=== PATIENT | female | born 1930 | race Caucasian/White ===

== ENCOUNTER 2016-10-02 00:32 | Outpatient (CLI) | payer MEDICARE, OTHER | END 2016-10-02 00:33 | disposition critical access hospital (66) | LOC: EMS 00:32 | PROVIDERS: ATTEND Surgery | DX: R00.0 Tachycardia, unspecified (principal) | CPT/HCPCS: A0425; A0429 ==

== ENCOUNTER 2016-10-02 00:52 | Emergency (ER) | payer MEDICARE, OTHER ==
[2016-10-02] MEDS ORDERED: diltiaZEM CD 120 MG CAPSULE PO STA (01:07)
[2016-10-02 01:22] LABS: BILIRUBIN,URINE NEGATIVE (NEGATIVE); PH,URINE 7.5 PH (5.0-7.5); UA CHARGE (STRIP ONLY) YES; UR CULTURE IF IND NOT INDICATED
[2016-10-02] MEDS ORDERED: diltiaZEM CD 180 MG CAPSULE PO ONE (01:23)
[2016-10-02 01:30] LABS: BASOPHILS # (AUTO) 0.1 10^3/uL (0.0-0.1); BASOPHILS % (AUTO) 1.4 %; EOSINOPHILS # (AUTO) 0.1 10^3/uL (0.0-0.7); HCT - HEMATOCRIT 39.1 % (37.0-47.0); HGB - HEMOGLOBIN 13.5 g/dL (12.0-16.0); LYMPHOCYTES # (AUTO) 1.2 10^3/uL (1.5-3.5); LYMPHOCYTES % (AUTO) 20.3 %; MEAN CORPUSCULAR HEMOGLOBIN 30.9 pg (27.0-31.0); MEAN CORPUSCULAR HGB CONC 34.4 g/dL (32.0-36.0); MEAN CORPUSCULAR VOLUME 89.9 fL (81.0-99.0); MEAN PLATELET VOLUME 7.4 fL (7.9-10.8); MONOCYTES # (AUTO) 0.5 10^3/uL (0.0-1.0); MONOCYTES % (AUTO) 9.2 %; NEUTROPHILS # (AUTO) 3.9 10^3/uL (1.5-6.6); NEUTROPHILS % (AUTO) 68.1 %; RED BLOOD COUNT 4.35 10^6/uL (4.20-5.40); UNCORRECTED WHITE BLOOD COUNT 5.8 x10^3/uL; WHITE BLOOD COUNT 5.8 x10^3/uL (4.8-10.8)
[2016-10-02 01:39] LABS: ALBUMIN/GLOBULIN RATIO 1.5 (1.0-2.2); BILIRUBIN,TOTAL 0.6 mg/dL (0.2-1.0); CALCIUM 8.9 mg/dL (8.5-10.3); CREATININE 0.6 mg/dL (0.4-1.0); POTASSIUM 3.1 mmol/L (3.5-5.0); TOTAL PROTEIN 6.3 g/dL (6.7-8.2)
[2016-10-02] MEDS ORDERED: POTASSIUM BICARB 25 MEQ TABLET PO STA (01:45)
[2016-10-02] MEDS ORDERED: POTASSIUM BICARB 25 MEQ TABLET PO ONE (01:49)
[2016-10-02] MEDS ORDERED: SOTALOL 80 MG TABLET PO STA (02:12)
[2016-10-02] MEDS ORDERED: RIVAROXABAN 10 MG TABLET PO STA (02:13)
[2016-10-02] MEDS ORDERED: LISINOPRIL 5 MG TABLET PO STA (02:15)
--- NOTE | 2016-10-02 02:16 | ED Physician Documentation ---
History of Present Illness - Stated complaint Stated Complaint: RAPID HRT RATE - Chief complaint Chief Complaint: Cardiac - History obtained from History obtained from: Patient, EMS - History of Present Illness Timing: Today - Additonal information Additional information: 86 y/o female with a history of SVT has not taken her diltiazem for the past 2 days and today she developed rapid heart rate. She has misplaced her medications and has not been able to find them the past 2 days. She does have a cooler worker who will be at her house tomorrow to help locate the medications. Today she had a rapid heart rate and called the ambulance. They found a rate of 142 and she converted in the ambulance on the way to the hospital. She arrives symptom free and she has not been ill lately. The last time this happened she was in a rapid rate for about 2 days and had an increase in her trop and was hospitalized. Review of Systems Constitutional: denies: Fever, Chills, Myalgias, Fatigue Eyes: denies: Decreased vision Ears: denies: Ear pain Nose: denies: Congestion Throat: denies: Sore throat Cardiac: reports: Palpitations. 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 : None HEENT: None Psych: None Musculoskeletal: None Derm: None - Past Surgical History Past Surgical History: Yes General: Cholecystectomy, Appendectomy, Hiatal hernia repair Ortho: Knee replacement /TURF FARMER: Endometrial ablation, Hysterectomy HEENT: Tonsil/Adenoidectomy - Present Medications Home Medications: Ambulatory Orders Medication Instructions Recorded Confirmed Potassium Chloride [K-Dur] 20 meq PO DAILY 03/03/13 10/02/16 diltiaZEM CD [Cardizem Cd] 180 mg PO DAILY 03/03/13 10/02/16 Rivaroxaban [Xarelto] 20 mg PO DAILY 04/06/13 10/02/16 Sotalol [Betapace] 80 mg ORAL BID 04/06/13 10/02/16 metFORMIN [Glucophage] 250 mg PO QDBREAKFAST 02/23/14 10/02/16 Lisinopril 20 mg PO DAILY 01/19/15 10/02/16 - Allergies Allergies/Adverse Reactions: Allergies Allergy/AdvReac Type Severity Reaction Status Date / Time ibuprofen [From Motrin] AdvReac Intermediate Ringing in Verified 10/02/16 01:06 ears - Social History Does the pt smoke?: No Smoking Status: Never smoker Does the pt drink ETOH?: No Does the pt have substance abuse?: No - Immunizations Immunizations are current?: Yes Immunizations: TDAP current <10years - POLST Patient has POLST: Yes POLST Status: Full Code PD ED PE NORMAL - Vitals Vital signs reviewed: Yes (hypertensive) - General General: No acute distress, Well developed/nourished - HEENT HEENT: Atraumatic, PERRL - Neck Neck: Supple, no meningeal sign - Cardiac Cardiac: RRR, No murmur - Respiratory Respiratory: No respiratory distress, Clear bilaterally - Abdomen Abdomen: Soft, Non tender - Back Back: No CVA TTP, No spinal TTP - Derm Derm: Normal color, Warm and dry, No rash - Extremities Extremities: No deformity, No edema - Neuro 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: 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, No motor deficit, No sensory deficit, Normal speech - Psych Psych: Normal mood, Normal affect Results - Vitals Vitals: Vital Signs - 24 hr 10/02/16 10/02/16 10/02/16 00:54 01:17 03:05 Temperature 36.4 C L Heart Rate 74 76 175 H Respiratory 16 14 Rate Blood Pressure 159/79 H 160/78 H 152/105 H O2 Saturation 97 97 10/02/16 10/02/16 03:10 03:24 Temperature Heart Rate 82 68 Respiratory 13 14 Rate Blood Pressure 136/78 H 132/80 H O2 Saturation 93 94 Oxygen O2 Source Room air - EKG (time done) 0109 Rate: Rate (enter#) (71) Rhythm: Other (atrial premature complexes) Prospect: LAD Compare to prior EKG: Unchanged from prior EKG (04-09-16) Computer interpretation: Agree with computer - Labs Labs: Laboratory Tests 10/02/16 10/02/16 10/02/16 01:13 01:22 01:22 WBC 5.8 RBC 4.35 Hgb 13.5 Hct 39.1 MCV 89.9 MCH 30.9 MCHC 34.4 RDW 14.0 Plt Count 156 MPV 7.4 L Neut # 3.9 Lymph # 1.2 L [place] # 0.5 Eos # 0.1 Baso # 0.1 Absolute Nucleated RBC 0.00 Nucleated RBCs 0.0 Sodium 140 Potassium 3.1 L Chloride 105 Carbon Dioxide 26 Anion Gap 9.0 BUN 26 H Creatinine 0.6 Estimated GFR (MDRD) 95 Glucose 145 H Calcium 8.9 Total Bilirubin 0.6 AST 46 H ALT 39 Alkaline Phosphatase 58 Troponin I Total Protein 6.3 L Albumin 3.8 Globulin 2.5 Albumin/Globulin Ratio 1.5 Lipase 42 Urine Color YELLOW Urine Clarity CLEAR Urine pH 7.5 Ur Specific [place] 1.010 Urine Protein NEGATIVE Urine Glucose (UA) NEGATIVE Urine Ketones NEGATIVE Urine Occult Blood NEGATIVE Urine Nitrite NEGATIVE Urine Bilirubin NEGATIVE Urine Urobilinogen 0.2 (NORMAL) Ur Leukocyte Esterase NEGATIVE Ur Microscopic Review NOT INDICATED Urine Culture Comments NOT INDICATED 10/02/16 01:22 WBC RBC Hgb Hct MCV MCH MCHC RDW Plt Count MPV Neut # Lymph # [place] # Eos # Baso # Absolute Nucleated RBC Nucleated RBCs Sodium Potassium Chloride Carbon Dioxide Anion Gap BUN Creatinine Estimated GFR (MDRD) Glucose Calcium Total Bilirubin AST ALT Alkaline Phosphatase Troponin I < 0.04 Total Protein Albumin Globulin Albumin/Globulin Ratio Lipase Urine Color Urine Clarity Urine pH Ur Specific [place] Urine Protein Urine Glucose (UA) Urine Ketones Urine Occult Blood Urine Nitrite Urine Bilirubin Urine Urobilinogen Ur Leukocyte Esterase Ur Microscopic Review Urine Culture Comments PD MEDICAL DECISION MAKING - ED course Complexity details: reviewed old records, reviewed results, re-evaluated patient , considered differential, d/w patient ED course: 86 y/o female with a rapid heart rate that spontaneously converted has been without her meds for 2 days. She has a negative trop and we have given her the medications she has not had that are essential. She is given lisiopril, xaralto , diltiazem and potassium as well as the sotalol. Here in the ED the patient was helped to the bedside commode and her heart rate increased to 170 and this was promptly converted with a single dose of dilt 10mg IVP. Departure - Departure Disposition: 01 Home, Self Care Clinical Impression: Paroxysmal SVT (supraventricular tachycardia), Hypokalemia Condition: Stable Instructions: ED Tachycardia Pat PSVT Follow-Up: Jj Burton MD [Physician No Access] - Comments: Have your cooler worker help you find your medications. If you are not able to find them get replacements today.
[2016-10-02] MEDS ORDERED: LISINOPRIL 20 MG TABLET ONE (02:23)
[2016-10-02] MEDS ORDERED: diltiaZEM INJ 5 MG/ML VIAL ONE (03:04)
[2016-10-02] MEDS ORDERED: diltiaZEM INJ 5 MG/ML VIAL IVP STA (03:05)
[2016-10-02 04:15] VITALS: BP 138/79
== END 2016-10-02 05:11 | disposition home or self-care (01) ==
LOC: ED 00:52
DX: I47.1 Supraventricular tachycardia (principal); E87.6 Hypokalemia; T46.1X6A Underdosing of calcium-channel blockers, initial encounter; Z91.138 Patient's unintentional underdosing of medication regimen for other reason; I10 Essential (primary) hypertension; I48.91 Unspecified atrial fibrillation; Z79.01 Long term (current) use of anticoagulants; E11.9 Type 2 diabetes mellitus without complications; Z79.84 Long term (current) use of oral hypoglycemic drugs
CPT/HCPCS: 36415; 80053; 81003; 83690; 84484; 85025; 93005; 93010; 96374; 99284; A9270; 81001; 87086

== ENCOUNTER 2017-05-28 14:14 | Outpatient (CLI) | payer MEDICARE, OTHER | END 2017-05-28 14:15 | disposition EMS.NT | LOC: EMS 14:14 | PROVIDERS: ATTEND Surgery | DX: Z03.89 Encounter for observation for other suspected diseases and conditions ruled out (principal); Z74.8 Other problems related to care provider dependency ==

== ENCOUNTER 2017-06-19 13:06 | Outpatient (CLI) | payer MEDICARE, OTHER | END 2017-06-19 13:07 | disposition EMS.NT | LOC: EMS 13:06 | PROVIDERS: ATTEND Surgery | DX: Z03.89 Encounter for observation for other suspected diseases and conditions ruled out (principal) ==

== ENCOUNTER 2017-11-26 03:25 | Outpatient (CLI) | payer MEDICARE, OTHER | END 2017-11-26 03:26 | disposition critical access hospital (66) | LOC: EMS 03:25 | PROVIDERS: ATTEND Surgery | DX: M25.552 Pain in left hip (principal); W18.30XA Fall on same level, unspecified, initial encounter; Y92.091 Bathroom in other non-institutional residence as the place of occurrence of the external cause | CPT/HCPCS: A0425; A0429 ==

== ENCOUNTER 2017-11-26 03:42 | Inpatient (IN) | payer MEDICARE, OTHER ==
[2017-11-26] MEDS ORDERED: MORPHINE 10 MG/ML VIAL IM STA (04:39)
--- NOTE | 2017-11-26 05:50 | ED Physician Documentation ---
PD HPI LOWER EXT INJURY - Stated complaint Stated Complaint: GLF - LEFT HIP PAIN - Chief complaint Chief Complaint: Trauma Ext - History obtained from History obtained from: Patient, EMS - History of Present Illness PD HPI LOW EXT INJURY LOCATION: Left, Hip Type of injury: Fall Where injury occurred: Other (patient is a resident at [facility]) Timing - details: Abrupt onset Pain level max: 10 Pain level now: 10 Improved by: Rest Worsened by: Moving Associated symptoms: No: Weakness, Numbness, Tingling, Swelling Similar symptoms before: Has not had sx before Recently seen: Not recently seen - Additional information Additional information: 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 Patient cannot recall why or how she fell. Review of Systems Constitutional: reports: Reviewed and negative Eyes: reports: Reviewed and negative Ears: reports: Reviewed and negative Nose: reports: Reviewed and negative Throat: reports: Reviewed and negative Cardiac: reports: Reviewed and negative Respiratory: reports: Reviewed and negative GI: reports: Reviewed and negative : denies: Dysuria, Frequency Skin: reports: Reviewed and negative Musculoskeletal: reports: Joint pain (left hip), Pain with weight bearing ( unable to bear any weight) Neurologic: denies: Generalized weakness, Focal weakness, Numbness, Headache, Head injury, LOC PD PAST MEDICAL HISTORY - Past Medical History Past Medical History: Yes Cardiovascular: Hypertension, Atrial fibrillation Respiratory: None Endocrine/Autoimmune: Type 2 diabetes GI: None 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 : None HEENT: None Psych: None Musculoskeletal: None Derm: None - Past Surgical History Past Surgical History: Yes General: Cholecystectomy, Appendectomy, Hiatal hernia repair Ortho: Knee replacement /WOOD BARREL RECONDITIONER: Endometrial ablation, Hysterectomy HEENT: Tonsil/Adenoidectomy - Present Medications Home Medications: Ambulatory Orders Medication Instructions Recorded Confirmed Sotalol [Betapace] 80 mg ORAL BID 04/06/13 10/02/16 metFORMIN [Glucophage] 250 mg PO QDBREAKFAST 02/23/14 10/02/16 Lisinopril 20 mg PO DAILY 01/19/15 10/02/16 Acetaminophen 2 tab PO Q6HR PRN 11/26/17 11/26/17 Fluticasone [Flonase] 2 sprays KENDRA DAILY 11/26/17 11/26/17 Loperamide [Imodium] 2 mg PO DAILY PRN 11/26/17 11/26/17 diltiaZEM CD [Cardizem Cd] 180 mg PO DAILY 11/26/17 11/26/17 - Allergies Allergies/Adverse Reactions: Allergies Allergy/AdvReac Type Severity Reaction Status Date / Time ibuprofen [From Motrin] AdvReac Intermediate Ringing in Verified 11/26/17 03:58 ears - Social History Does the pt smoke?: No Smoking Status: Never smoker Does the pt drink ETOH?: No Does the pt have substance abuse?: No - Immunizations Immunizations are current?: Yes Immunizations: TDAP current <10years - POLST Patient has POLST: No POLST Status: Full Code PD ED PE NORMAL - Vitals Vital signs reviewed: Yes - General General: No acute distress, Well developed/nourished, Other (awake, alert, conversant. 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 2 + bilateral DP/PT pulses) Results - Vitals Vitals: Vital Signs - 24 hr 11/26/17 11/26/17 11/26/17 03:40 05:04 06:01 Temperature 36.2 C L Heart Rate 60 66 53 L Respiratory 18 14 12 Rate Blood Pressure 192/85 H 146/64 H 184/78 H O2 Saturation 98 97 95 11/26/17 07:31 Temperature Heart Rate 63 Respiratory 10 L Rate Blood Pressure 160/73 H O2 Saturation 95 Oxygen O2 Source Room air - Labs Labs: Laboratory Tests 11/26/17 11/26/1711/26/18 06:10 06:10 06:10 WBC 7.4 RBC 4.56 Hgb 14.1 Hct 41.4 MCV 90.7 MCH 30.8 MCHC 33.9 RDW 13.3 Plt Count 184 MPV 7.4 L Neut # (Auto) 6.0 Lymph # (Auto) 0.7 L [place] # (Auto) 0.5 Eos # (Auto) 0.0 Baso # (Auto) 0.0 Absolute Nucleated RBC 0.00 Nucleated RBC % 0.0 PT 14.4 H INR 1.3 H APTT 29.9 Sodium 137 Potassium 3.2 L Chloride 99 L Carbon Dioxide 29 Anion Gap 9.0 BUN 15 Creatinine 0.7 Estimated GFR (MDRD) 79 L Glucose 171 H Calcium 8.7 Urine Color Urine Clarity Urine pH Ur Specific [place] Urine Protein Urine Glucose (UA) Urine Ketones Urine Occult Blood Urine Nitrite Urine Bilirubin Urine Urobilinogen Ur Leukocyte Esterase Ur Microscopic Review Urine Culture Comments 11/26/17 06:10 WBC RBC Hgb Hct MCV MCH MCHC RDW Plt Count MPV Neut # (Auto) Lymph # (Auto) [place] # (Auto) Eos # (Auto) Baso # (Auto) Absolute Nucleated RBC Nucleated RBC % PT INR APTT Sodium Potassium Chloride Carbon Dioxide Anion Gap BUN Creatinine Estimated GFR (MDRD) Glucose Calcium Urine Color LIGHT YELLOW Urine Clarity CLEAR Urine pH 7.5 Ur Specific [place] 1.010 Urine Protein NEGATIVE Urine Glucose (UA) NEGATIVE Urine Ketones NEGATIVE Urine Occult Blood NEGATIVE Urine Nitrite NEGATIVE Urine Bilirubin NEGATIVE Urine Urobilinogen 0.2 (NORMAL) Ur Leukocyte Esterase NEGATIVE Ur Microscopic Review NOT INDICATED Urine Culture Comments NOT INDICATED - Rads (name of study) left hip xrays Radiology: Prelim report reviewed, See rad report CT head Radiology: Prelim report reviewed, See rad report PD MEDICAL DECISION MAKING - ED course Complexity details: reviewed old records, reviewed results, re-evaluated patient , considered differential, d/w patient ED course: D/W Dr. Carrera (on-call orthopedics), will consult and hospitalist to admit. D/W Dr. Luke, accepts admission to hospitalist service - Sepsis Event Vital Signs: Vital Signs - 24 hr 11/26/17 11/26/17 11/26/17 03:40 05:04 06:01 Temperature 36.2 C L Heart Rate 60 66 53 L Respiratory 18 14 12 Rate Blood Pressure 192/85 H 146/64 H 184/78 H O2 Saturation 98 97 95 11/26/17 07:31 Temperature Heart Rate 63 Respiratory 10 L Rate Blood Pressure 160/73 H O2 Saturation 95 Oxygen O2 Source Room air Departure - Departure Disposition: 66 [facility] DC/Xfer Clinical Impression: Hip fracture Qualifiers: Encounter type: initial encounter Fracture type: closed Laterality: left Qualified Code(s): S72.002A - Fracture of unspecified part of neck of left femur , initial encounter for closed fracture Condition: Good Discharge Date/Time: 11/26/17 08:45
--- NOTE | 2017-11-26 05:57 | XRAY Report ---
Procedure Date: 11/26/2017 Accession Number: [id number] / [id number] Procedure: XR - Hip w/Pelvis 2-3V LT CPT Code: FULL RESULT: EXAM: LEFT HIP AND PELVIS RADIOGRAPHY EXAM DATE: 11/26/2017 05:44 AM. HISTORY: GLF, injury to L hip, unable to move L leg. COMPARISONS: None. TECHNIQUE: 1 view of the pelvis and 1 view of the hip. FINDINGS: Bones: Osteopenia. Intertrochanteric left hip fracture. Joints: No dislocation. Mild degenerative changes in the hips. Soft Tissues: Vascular calcifications. IMPRESSION: 1. Osteopenia with intertrochanteric left hip fracture. RADIA
[2017-11-26 06:25] LABS: BASOPHILS % (AUTO) 0.6 %; EOSINOPHILS % (AUTO) 0.6 %; HGB - HEMOGLOBIN 14.1 g/dL (12.0-16.0); LYMPHOCYTES # (AUTO) 0.7 10^3/uL (1.5-3.5); LYMPHOCYTES % (AUTO) 9.8 %; MEAN CORPUSCULAR HEMOGLOBIN 30.8 pg (27.0-31.0); MEAN CORPUSCULAR HGB CONC 33.9 g/dL (32.0-36.0); MEAN CORPUSCULAR VOLUME 90.7 fL (81.0-99.0); MEAN PLATELET VOLUME 7.4 fL (7.9-10.8); MONOCYTES # (AUTO) 0.5 10^3/uL (0.0-1.0); MONOCYTES % (AUTO) 7.3 %; NEUTROPHILS % (AUTO) 81.7 %; PLT - PLATELET COUNT 184 10^3/uL (130-450); RED BLOOD COUNT 4.56 10^6/uL (4.20-5.40); RED CELL DISTRIBUTION WIDTH 13.3 % (12.0-15.0); WHITE BLOOD COUNT 7.4 x10^3/uL (4.8-10.8)
[2017-11-26 06:26] LABS: BILIRUBIN,URINE NEGATIVE (NEGATIVE); GLUCOSE, URINE (UA) NEGATIVE (NEGATIVE); KETONES,URINE (UA) NEGATIVE (NEGATIVE); LEUKOCYTE ESTERASE, URINE NEGATIVE (NEGATIVE); NITRITE,URINE NEGATIVE (NEGATIVE); OCCULT BLOOD,URINE NEGATIVE (NEGATIVE); PH,URINE 7.5 PH (5.0-7.5); PROTEIN,URINE NEGATIVE (NEGATIVE); UROBILINOGEN,URINE 0.2 (NORMAL) E.U./dL (NORMAL)
[2017-11-26 06:28] LABS: CLARITY,URINE CLEAR (CLEAR)
[2017-11-26] MEDS ORDERED: MORPHINE 2 MG/ML SYRINGE IVP STA (06:30)
[2017-11-26 06:31] LABS: INR 1.3 (0.8-1.2); PT - PROTHROMBIN TIME 14.4 secs (9.9-12.6)
[2017-11-26] MEDS ORDERED: SODIUM CHLORIDE 0.9% 1,000 ML IV STA (06:31)
[2017-11-26 06:34] LABS: CALCIUM 8.7 mg/dL (8.5-10.3); CREATININE 0.7 mg/dL (0.4-1.0)
--- NOTE | 2017-11-26 07:42 | XRAY Report ---
Procedure Date: 11/26/2017 Accession Number: [id number] / [id number] Procedure: XR - Chest 1 View X-Ray CPT Code: 47296 FULL RESULT: EXAM: CHEST RADIOGRAPHY EXAM DATE: 11/26/2017 07:02 AM. CLINICAL HISTORY: Hip fracture. Preoperative. COMPARISON: 04/09/2016. TECHNIQUE: 1 view. FINDINGS: Mildly suboptimal evaluation secondary to grid artifact. Lungs/Pleura: No focal consolidation. No large pneumothorax or pleural effusion demonstrated on this single supine view. Probable hyperinflation, as before. Mediastinum: Upper normal size of the cardiac silhouette and mildly tortuous, atherosclerotic thoracic aorta as before. Other: None. IMPRESSION: No radiographically apparent acute abnormality in the chest. No significant change from prior RADIA
--- NOTE | 2017-11-26 07:49 | CT Report ---
Procedure Date: 11/26/2017 Accession Number: [id number] / [id number] Procedure: CT - Head W/O CPT Code: FULL RESULT: EXAM: CT HEAD EXAM DATE: 11/26/2017 07:04 AM. CLINICAL HISTORY: Fall, takes blood thinners (increased risk of intracranial hemorrhage secondary to anticoagulation ). COMPARISON: HEAD W/O 02/23/2014 8:44 AM. TECHNIQUE: Multiaxial CT images were obtained from the foramen magnum to the vertex. Reformats: Sagittal and coronal. IV contrast: None. In accordance with CT protocol optimization, one or more of the following dose reduction techniques were utilized for this exam: automated exposure control, adjustment of mA and/or KV based on patient size, or use of iterative reconstructive technique. FINDINGS: Parenchyma: No acute intraparenchymal hemorrhage. No evidence of mass, midline shift, or CT findings of acute infarction. Small right parieto-occipital focus of encephalomalacia again demonstrated. Agarwal-white differentiation is overall distinct. Diffuse chronic microangiopathic white matter changes are evident. Extraaxial Spaces: Normal for age. No subdural or epidural collections identified. Ventricles: The ventricles and cortical sulci are enlarged, consistent with age-related tissue loss. Sinuses and orbits: Imaged paranasal sinuses, orbits, and mastoids show no significant abnormality. Bones: No evidence of fracture or calvarial defect. Other: None. IMPRESSION: Generalized age-related cortical atrophic changes without evidence of acute intracranial abnormality. No significant change from prior. RADIA
[2017-11-26] MEDS ORDERED: ONDANSETRON 4 MG/2 ML VIAL IVP PRN (08:03)
[2017-11-26] MEDS ORDERED: ZOLPIDEM 5 MG TABLET PO PRN (08:03)
[2017-11-26] MEDS ORDERED: PROCHLORPERAZINE 10 MG/2 ML VIAL IVP PRN (08:03)
[2017-11-26] MEDS ORDERED: PROMETHAZINE 25 MG/1 ML VIAL IM PRN (08:03)
[2017-11-26] MEDS ORDERED: SODIUM CHLORIDE FLUSH 0.9% 10 ML SYRINGE IVP PRN (08:03)
--- NOTE | 2017-11-26 08:12 | HISTORY & PHYSICAL EXAMINATION ---
Chief Complaint - Chief Complaint Chief Complaint: Left leg pain History of Present Illness - Admitted From Admitted From:: Emergency department - History Obtained From Records Reviewed: Yes History obtained from: Patient and medical record Exam Limitations: Patient has dementia and is unable to provide a reliable history - History of Present Illness HPI Comment/Other: Patient is an 87 year old femal resident of [facility] with a past medical history significant for atrial fibrillation on Xarelto, diabetes on Metformin, hypertension and dementia who presented to the emergency department with chief complaint of left hip pain. The patient is a poor historian secondary to her dementia. When asked she does not remember why she came into the hospital. When I asked her what she was doing before she came into the hospital she states that she was riding on a bicycle in a place that she should no have been. She does not know where she is currently living but could tell me her previous address. She is aware that she has pain in her left leg but was no aware why. The patient could not recall what happened before she arrived at the ER. According to records it appears that the patient was ambulating to the [facility] at [facility] at around 3 AM when she fell on her left side. She then complained of pain in her left lower leg and could not get back up. According to the staff at [facility] she did not hit her head or lose consciousness. The patient was unable to get up so staff called 911. Aside from the pain the patient denies any other complaints. Patient denies any headache, blurred vision, runny nose, sore throat, nasal congestion, difficult, swallowing, fevers, chills, chest pain, shortness of air , orthopnea, PND, increased lower extremity swelling, cough, abdominal pain, nausea, vomiting, diarrhea, constipation, urinary symptoms, back pain, neck stiffness, changes in her appetite, recent unintentinal weight loss, neight sweats, hair loss, rash or any focal neurologic deficits. On presentation to the ER the patient was afebrile and very hypertensive. She was in moderate distress secondary to pain. She had obvious deformity of her left leg. She was taken for x ray of her hip right away and this showed that she had a intertrochanteric left hip fracture. Given that the patient was on xarelto she also had a CT head to rule out a bleed. She had no acute finding on CT head. She had routine labs and a CXR which were unimpressive. Orthopedic Surgery was called from the ER and they asked that the hospitalist team admit the patient and consult Orthopedic surgery. History - Past Medical History Cardiovascular: reports: Hypertension, Coronary artery disease (s/p 1 stent in 2014), Atrial fibrillation Respiratory: reports: None Endocrine/Autoimmune: reports: Type 2 diabetes GI: reports: None CREDENTIALING MANAGER: reports: None : reports: None HEENT: reports: None Psych: reports: None Musculoskeletal: reports: None Derm: reports: None MRSA Hx?: No Other Past Medical History: Dementia - Past Surgical History General: reports: Cholecystectomy, Appendectomy, Hiatal hernia repair Ortho: reports: Knee replacement /CREDENTIALING MANAGER: reports: Endometrial ablation, Hysterectomy HEENT: reports: Tonsil/Adenoidectomy - Family & Social History Family History: Mother: , Father: , CAD, Brother: CAD Living arrangement: residential Living Situation: With caregiver(s) Social History Notes: The patient currently lives in a memory care unit at [facility]. The patient moved up to [facility] after her ch[facility], with her . The patient's lives in an assisted living facility and [facility] in [place]. This is the patient's second and they have been for 19 years. The patient does have one daughter who she is currently estranged from. She has 2 grandchildren, 1 of whom lives in [place] and works for the [employer]. The other grandchild lives in [place]. The patient does have memory impairment and dementia therefore her social history may not be completely accurate. She however denies drinking any alcohol, smoking tobacco or using any illicit drugs. - POLST Patient has POLST: No POLST Status: Full Code Meds/Allgy - Home Medications Home Medications: Ambulatory Orders Medication Instructions Recorded Confirmed Sotalol [Betapace] 80 mg ORAL BID 04/06/13 11/26/17 metFORMIN [Glucophage] 250 mg PO QDBREAKFAST 02/23/14 11/26/17 Lisinopril 20 mg PO DAILY 01/19/15 11/26/17 Acetaminophen 2 tab PO Q6HR PRN 11/26/17 11/26/17 Fluticasone [Flonase] 2 sprays KENDRA DAILY 11/26/17 11/26/17 Loperamide [Imodium] 2 mg PO DAILY PRN 11/26/17 11/26/17 Rivaroxaban [Xarelto] 20 mg PO QDBREAKFAST 11/26/17 11/26/17 diltiaZEM CD [Cardizem Cd] 180 mg PO DAILY 11/26/17 11/26/17 - Allergies Allergies/Adverse Reactions: Allergies Allergy/AdvReac Type Severity Reaction Status Date / Time ibuprofen [From Motrin] AdvReac Intermediate Ringing in Verified 11/26/17 03:58 ears Review of Systems - Other Findings Other Findings: A comprehensive review of systems was performed the pertinent positives and negatives are stated above in the HPI and the remainder of the review of systems is negative. Exam - Vital Signs Reviewed Vital Signs: Yes Vital Signs: Vital Signs x48h Temp Pulse Resp BP Pulse Ox 11/26/17 07:31 63 10 L 160/73 H 95 11/26/17 06:01 53 L 12 184/78 H 95 11/26/17 05:04 66 14 146/64 H 97 11/26/17 03:40 36.2 C L 60 18 192/85 H 98 - Physical Exam General Appearance: positive: Alert, Mild distress (Pain in left hip), Other ( Pleasantly demented) Eyes Bilateral: positive: Normal inspection, PERRL, EOMI, No lid inflammation, Conjunctivae nml, No scleral icterus ENT: positive: ENT inspection nml, Pharynx nml, No signs of dehydration. negative: Purulent nasal drainage, Pharyngeal erythema, Oral lesions Neck: positive: Nml inspection, Thyroid nml, No JVD, Trachea midline. negative : Thyromegaly, Lymphadenopathy (R), Lymphadenopathy (L), Stiff neck, Carotid bruit, Tracheal deviation Respiratory: positive: Chest non-tender, No respiratory distress, Breath sounds nml. negative: Wheezes, Rales, Rhonchi Cardiovascular: positive: Regular rate & rhythm, No murmur, No gallop Peripheral Pulses: positive: 2+ Abdomen: positive: Non-tender, No organomegaly, Nml bowel sounds, No distention. negative: Guarding, Rebound, Hepatomegaly Back: positive: Nml inspection. negative: CVA tenderness (R), CVA tenderness (L ) Skin: positive: Color nml, No rash, Warm, Dry. negative: Cyanosis, Diaphoresis , Pallor, Skin rash Extremities: positive: No pedal edema, Other (Left LE externally rotated and shortened with decreased ROM secondary to severe pain) Neurologic/Psychiatric: positive: CN's nml (2-12), Motor nml, Sensation nml, Mood/affect nml, Disoriented to time Conclusion/Plan - Problem List (1) Intertrochanteric fracture of left hip Conclusion/Plan: Patient presented to ER after what is assumed to have been a mechanical fall at [facility]. The patient could not provide any details secondary to her dementia and poor short term memory. She was in pain on presentation and had shortened and externally rotated left leg. The patient x ray of her left hip revealed a intertrochanteric fracture of the left hip. According to the RCRI calculator the patients pre operative risk of major cardiac event is 0.9 %. Patient is on Xarelto for atrial fibrillation which will need to be held. It should be held for 3 does prior to surgery to reduce risk of bleeding. Plan: Hold xarelto Preoperative Echo and EKG Patient can get surgical repair of hip tomorrow afternoon after 3 doses have been held Ortho consult IVFs Pain control with IV morphine PT consult NPO after midnight Qualifiers: Encounter type: initial encounter Fracture type: closed Fracture alignment: nondisplaced Qualified Code(s): S72.145A - Nondisplaced intertrochanteric fracture of left femur, initial encounter for closed fracture (2) Atrial fibrillation Conclusion/Plan: On xarelto for anticoagulation. Rate controlled with sotolol and diltiazem. Plan: Hold xarelto Echo Continue dilt and sotolol Monitor on tele Qualifiers: Atrial fibrillation type: chronic Qualified Code(s): I48.2 - Chronic atrial fibrillation (3) Diabetes Conclusion/Plan: Patient on metformin at home BG elevated on presentation Plan: Hold metformin SS insulin protocol Carb controlled diet HbA1C Qualifiers: Diabetes mellitus type: type 2 Diabetes mellitus shelter insulin use: without middle or intermediate school principal use Diabetes mellitus complication status: with hyperglycemia Qualified Code(s): E11.65 - Type 2 diabetes mellitus with hyperglycemia (4) Hypertension Conclusion/Plan: Uncontrolled on presentation likely secondary to pain Continue home meds Monitor BP Pain control Qualifiers: Hypertension type: essential hypertension Qualified Code(s): I10 - Essential (primary) hypertension (5) History of coronary artery disease Conclusion/Plan: Patient has history of CAD with stent No chest pain or shortness of breath currently Will get echo and EKG Stable - Lab Results Lab results reviewed: Yes Fish Bones: 11/26/17 06:10 11/26/17 06:10 Other Lab Results: Laboratory Results WBC 7.4 x10^3/uL (4.8-10.8) 11/26/17 06:10 RBC 4.56 10^6/uL (4.20-5.40) 11/26/17 06:10 Hgb 14.1 g/dL (12.0-16.0) 11/26/17 06:10 Hct 41.4 % (37.0-47.0) 11/26/17 06:10 MCV 90.7 fL (81.0-99.0) 11/26/17 06:10 MCH 30.8 pg (27.0-31.0) 11/26/17 06:10 MCHC 33.9 g/dL (32.0-36.0) 11/26/17 06:10 RDW 13.3 % (12.0-15.0) 11/26/17 06:10 Plt Count 184 10^3/uL (130-450) 11/26/17 06:10 MPV 7.4 fL (7.9-10.8) L 11/26/17 06:10 Neut # (Auto) 6.0 10^3/uL (1.5-6.6) 11/26/17 06:10 Lymph # (Auto) 0.7 10^3/uL (1.5-3.5) L 11/26/17 06:10 [place] # (Auto) 0.5 10^3/uL (0.0-1.0) 11/26/17 06:10 Eos # (Auto) 0.0 10^3/uL (0.0-0.7) 11/26/17 06:10 Baso # (Auto) 0.0 10^3/uL (0.0-0.1) 11/26/17 06:10 Absolute Nucleated RBC 0.00 x10^3/uL 11/26/17 06:10 Nucleated RBC % 0.0 /100WBC 11/26/17 06:10 PT 14.4 secs (9.9-12.6) H 11/26/17 06:10 INR 1.3 (0.8-1.2) H 11/26/17 06:10 APTT 29.9 secs (24.9-33.3) 11/26/17 06:10 Sodium 137 mmol/L (135-145) 11/26/17 06:10 Potassium 3.2 mmol/L (3.5-5.0) L 11/26/17 06:10 Chloride 99 mmol/L (101-111) L 11/26/17 06:10 Carbon Dioxide 29 mmol/L (21-32) 11/26/17 06:10 Anion Gap 9.0 (6-13) 11/26/17 06:10 BUN 15 mg/dL (6-20) 11/26/17 06:10 Creatinine 0.7 mg/dL (0.4-1.0) 11/26/17 06:10 Estimated GFR (MDRD) 79 (>89) L 11/26/17 06:10 Glucose 171 mg/dL (70-100) H 11/26/17 06:10 Calcium 8.7 mg/dL (8.5-10.3) 11/26/17 06:10 Urine Color LIGHT YELLOW 11/26/17 06:10 Urine Clarity CLEAR (CLEAR) 11/26/17 06:10 Urine pH 7.5 PH (5.0-7.5) 11/26/17 06:10 Ur Specific [place] 1.010 (1.002-1.030) 11/26/17 06:10 Urine Protein NEGATIVE mg/dL (NEGATIVE) 11/26/17 06:10 Urine Glucose (UA) NEGATIVE mg/dL (NEGATIVE) 11/26/17 06:10 Urine Ketones NEGATIVE mg/dL (NEGATIVE) 11/26/17 06:10 Urine Occult Blood NEGATIVE (NEGATIVE) 11/26/17 06:10 Urine Nitrite NEGATIVE (NEGATIVE) 11/26/17 06:10 Urine Bilirubin NEGATIVE (NEGATIVE) 11/26/17 06:10 Urine Urobilinogen 0.2 (NORMAL) E.U./dL (NORMAL) 11/26/17 06:10 Ur Leukocyte Esterase NEGATIVE (NEGATIVE) 11/26/17 06:10 Ur Microscopic Review NOT INDICATED 11/26/17 06:10 Urine Culture Comments NOT INDICATED 11/26/17 06:10 - Diagnostic Imaging Results Diagnostic Imaging Results: positive: Final report reviewed Diagnostic Imaging Results Comments: Hip/pelvis x-ray Impression: 1. Osteopenia with intertrochanteric left hip fracture CT head Impression: Generalized age-related cortical atrophic changes without evidence of acute intracranial abnormality. No significant change from prior. Chest x-ray Impression: No radiographically apparent acute abnormality in the chest. No significant change from prior. - EKG Results EKG Interpreted Independently: Yes Core Measures - Anticipated LOS I expect patient to be DC'd or transferred within 96 hours.: Yes - DVT/VTE - Prophylaxis VTE/DVT Device ordered at admit?: Yes
[2017-11-26] MEDS: MORPHINE 2 MG/ML SYRINGE IVP PRN ×2 (09:14→12:45)
[2017-11-26] MEDS: INSULIN ASPART 300 UNIT/3 ML PEN SUBQ SCH ×3 (12:37→20:31)
[2017-11-26] MEDS: POLYETHYLENE GLYCOL 3350 17 GM PACKET PO SCH (12:45)
[2017-11-26] MEDS: FAMOTIDINE 20 MG TABLET PO SCH (12:45)
[2017-11-26] MEDS: SODIUM CHLORIDE 0.9% 1,000 ML IV SCH ×2 (12:46→22:57)
[2017-11-26] MEDS: SODIUM CHLORIDE FLUSH 0.9% 10 ML SYRINGE IVP SCH ×3 (12:54→23:38)
[2017-11-26] MEDS: oxyCODONE 5 MG TABLET PO PRN ×2 (14:16→16:09)
--- NOTE | 2017-11-26 16:53 | CONSULTATION NOTE ---
Referring Provider Name of Referring Provider:: Hospitalist group Consult Date: 11/26/17 Chief Complaint - Chief Complaint Chief Complaint: left hip fracture History of Present Illness - Admitted From Admitted From:: ER - History of Present Illness HPI Comment/Other: 87 year old female fell at the memory care facility and began to complain of pain in her left hip. she was seen in the ER and found to have an intertrochanteric hip fracture. 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 History - Past Medical History Cardiovascular: reports: Hypertension, Coronary artery disease (s/p 1 stent in 2014), Atrial fibrillation Respiratory: reports: None Neuro: reports: Dementia Endocrine/Autoimmune: reports: Type 2 diabetes GI: reports: None MASTER SONAR TECHNICIAN: reports: None : reports: None HEENT: reports: None Psych: reports: None Musculoskeletal: reports: None Derm: reports: None MRSA Hx?: No Other Past Medical History: Dementia - Past Surgical History General: reports: Cholecystectomy, Appendectomy, Hiatal hernia repair Ortho: reports: Knee replacement /MASTER SONAR TECHNICIAN: reports: Endometrial ablation, Hysterectomy HEENT: reports: Tonsil/Adenoidectomy - Family & Social History Family History: Mother: , Father: , CAD, Brother: CAD Living arrangement: halfway Living Situation: With caregiver(s) Social History Notes: The patient currently lives in a memory care unit at [facility]. The patient moved up to [facility] after her f[facility], with her . The patient's lives in an assisted living facility and [place] in [place]. This is the patient's second and they have been for 19 years. The patient does have one daughter who she is currently estranged from. She has 2 grandchildren, 1 of whom lives in [place] and works for the [employer]. The other grandchild lives in [place]. The patient does have memory impairment and dementia therefore her social history may not be completely accurate. She however denies drinking any alcohol, smoking tobacco or using any illicit drugs. - POLST Patient has POLST: No POLST Status: Full Code Meds/Allgy - Home Medications Home Medications: Ambulatory Orders Medication Instructions Recorded Confirmed Sotalol [Betapace] 80 mg ORAL BID 04/06/13 11/26/17 metFORMIN [Glucophage] 250 mg PO QDBREAKFAST 02/23/14 11/26/17 Lisinopril 20 mg PO DAILY 01/19/15 11/26/17 Acetaminophen 2 tab PO Q6HR PRN 11/26/17 11/26/17 Fluticasone [Flonase] 2 sprays KENDRA DAILY 11/26/17 11/26/17 Loperamide [Imodium] 2 mg PO DAILY PRN 11/26/17 11/26/17 Rivaroxaban [Xarelto] 20 mg PO QDBREAKFAST 11/26/17 11/26/17 diltiaZEM CD [Cardizem Cd] 180 mg PO DAILY 11/26/17 11/26/17 - Allergies Allergies/Adverse Reactions: Allergies Allergy/AdvReac Type Severity Reaction Status Date / Time ibuprofen [From Motrin] AdvReac Intermediate Ringing in Verified 11/26/17 03:58 ears Exam - Vital Signs Vital Signs: Vital Signs x48h Temp Pulse Resp BP Pulse Ox 11/26/17 15:40 36.8 C 63 16 160/85 H 97 - Physical Exam General Appearance: positive: No acute distress, Alert Eyes Bilateral: positive: Normal inspection Extremities: positive: Other (left leg externally rotated and knee flexed. Toes up and down. Sensory exam normal. Foot warm.) Conclusion/Plan - Diagnosis Diagnosis: Intertrochanteric left hip fracture - Plan Plan: She is on Xarelto and is at high risk of a complication from uncontrolled bleeding. We will tentatively schedule her surgery for Friday. - Lab Results Lab results reviewed: Yes Fish Bones: 11/26/17 06:10 11/26/17 06:10 - Diagnostic Imaging Results Diagnostic Imaging Results: positive: See rad report
[2017-11-26] MEDS: SOTALOL 80 MG TABLET PO SCH (20:31)
[2017-11-27] MEDS: oxyCODONE 5 MG TABLET PO PRN ×3 (03:58→16:48)
[2017-11-27 05:56] LABS: INR 1.1 (0.8-1.2); PT - PROTHROMBIN TIME 12.9 secs (9.9-12.6)
[2017-11-27 05:57] LABS: BASOPHILS % (AUTO) 0.4 %; EOSINOPHILS % (AUTO) 0.5 %; HGB - HEMOGLOBIN 13.3 g/dL (12.0-16.0); LYMPHOCYTES % (AUTO) 10.4 %; MEAN CORPUSCULAR HEMOGLOBIN 30.9 pg (27.0-31.0); MEAN CORPUSCULAR HGB CONC 33.9 g/dL (32.0-36.0); MONOCYTES % (AUTO) 11.2 %; NEUTROPHILS # (AUTO) 7.2 10^3/uL (1.5-6.6); NEUTROPHILS % (AUTO) 77.5 %; PLT - PLATELET COUNT 177 10^3/uL (130-450); RED BLOOD COUNT 4.31 10^6/uL (4.20-5.40); RED CELL DISTRIBUTION WIDTH 13.3 % (12.0-15.0); WHITE BLOOD COUNT 9.3 x10^3/uL (4.8-10.8)
[2017-11-27 06:04] LABS: ALBUMIN 3.2 g/dL (3.2-5.5); ALBUMIN/GLOBULIN RATIO 1.2 (1.0-2.2); BILIRUBIN,TOTAL 0.9 mg/dL (0.2-1.0); CALCIUM 8.1 mg/dL (8.5-10.3); CREATININE 0.7 mg/dL (0.4-1.0); MAGNESIUM 1.9 mg/dL (1.7-2.8); PHOSPHORUS 3.4 mg/dL (2.5-4.6); TOTAL PROTEIN 5.8 g/dL (6.7-8.2)
[2017-11-27 06:35] LABS: HB2 TOTAL 13.7 g/dL; HEMOGLOBIN A1C 0.69 g/dL; HEMOGLOBIN A1C % 6.8 % (4.6-6.2)
[2017-11-27] MEDS: INSULIN ASPART 300 UNIT/3 ML PEN SUBQ SCH ×5 (08:14→21:08)
[2017-11-27] MEDS ORDERED: FLUTICASONE NASAL SPRAY NAS SCH (09:00)
[2017-11-27] MEDS: SOTALOL 80 MG TABLET PO SCH ×2 (09:09→20:13)
[2017-11-27] MEDS: diltiaZEM CD 180 MG CAPSULE PO SCH (09:10)
[2017-11-27] MEDS: FAMOTIDINE 20 MG TABLET PO SCH (09:10)
[2017-11-27] MEDS: LISINOPRIL 20 MG TABLET PO SCH (09:10)
[2017-11-27] MEDS: SODIUM CHLORIDE 0.9% 1,000 ML IV SCH ×2 (09:11→23:02)
[2017-11-27] MEDS: POLYETHYLENE GLYCOL 3350 17 GM PACKET PO SCH ×2 (09:13→20:13)
[2017-11-27] MEDS: SODIUM CHLORIDE FLUSH 0.9% 10 ML SYRINGE IVP SCH ×2 (09:14→19:08)
[2017-11-27] MEDS: ACETAMINOPHEN 325 MG TABLET PO PRN (09:19)
[2017-11-27] MEDS: FLUTICASONE NASAL SPRAY NAS SCH (09:51)
--- NOTE | 2017-11-27 13:40 | PROVIDER PROGRESS NOTE ---
Assessment/Plan - Problem List (1) Intertrochanteric fracture of left hip Qualifiers: Encounter type: initial encounter Fracture type: closed Fracture alignment: nondisplaced Qualified Code(s): S72.145A - Nondisplaced intertrochanteric fracture of left femur, initial encounter for closed fracture Assessment/Plan: Patient presented to ER after what is assumed to have been a mechanical fall at [facility]. The patient could not provide any details secondary to her dementia and poor short term memory. She was in pain on presentation and had shortened and externally rotated left leg. The patient x ray of her left hip revealed a intertrochanteric fracture of the left hip. According to the RCRI calculator the patients pre operative risk of major cardiac event is 0.9 %. Patient is on Xarelto for atrial fibrillation which will need to be held. It should be held for 3 does prior to surgery to reduce risk of bleeding. Plan: Hold xarelto Preoperative Echo shows normal EF and no major valvular abnormalities Patient to get surgery to repair hip tomorrow am Ortho consulted IVFs Pain control with IV morphine PT consult post op NPO after midnight Qualifiers: Encounter type: initial encounter Fracture type: closed Fracture alignment: nondisplaced Qualified Code(s): S72.145A - Nondisplaced intertrochanteric fracture of left femur, initial encounter for closed fracture (2) Atrial fibrillation Conclusion/Plan: On xarelto for anticoagulation. Rate controlled with sotolol and diltiazem. Plan: Hold xarelto Echo was normal Continue dilt and sotolol Monitor on tele Qualifiers: Atrial fibrillation type: chronic Qualified Code(s): I48.2 - Chronic atrial fibrillation (3) Diabetes Conclusion/Plan: Patient on metformin at home BG improved today Plan: Hold metformin SS insulin protocol Carb controlled diet HbA1C Qualifiers: Diabetes mellitus type: type 2 Diabetes mellitus superintendent [employer] insulin use: without superintendent [employer] use Diabetes mellitus complication status: with hyperglycemia Qualified Code(s): E11.65 - Type 2 diabetes mellitus with hyperglycemia (4) Hypertension Conclusion/Plan: BP improved Continued home meds Monitor BP Pain control Qualifiers: Hypertension type: essential hypertension Qualified Code(s): I10 - Essential (primary) hypertension (5) History of coronary artery disease Conclusion/Plan: Patient has history of CAD with stent No chest pain or shortness of breath currently Echo is normal Stable - Current Meds Current Meds: Current Medications Generic Name Dose Route Start Last Admin Trade Name Freq PRN Reason Stop Dose Admin Acetaminophen 650 mg 11/26/17 08:03 11/27/17 09:19 Tylenol PO 650 mg Q4HR PRN Administration Pain 1 to 4 Diltiazem HCl 180 mg 11/27/17 09:00 11/27/17 09:10 Cardizem Cd PO 180 mg DAILY DEANNA Administration Famotidine 20 mg 11/26/17 09:00 11/27/17 09:10 Pepcid PO 20 mg DAILY DEANAN Administration Fluticasone Propionate 2 sprays 11/27/17 09:00 11/27/17 09:51 Flonase KENDRA 2 sprays DAILY DEANNA Administration Sodium Chloride 1,000 mls @ 100 mls/hr 11/26/17 09:00 11/27/17 09:11 Normal Saline 0.9% IV 100 mls/hr .Q10H DEANNA Administration Insulin Aspart 1 - 5 unit 11/26/17 12:00 11/27/17 11:49 Novolog SUBQ 1 unit 0800,1200,1700,2100 DEANNA Administration Protocol Lisinopril 20 mg 11/27/17 09:00 11/27/17 09:10 Zestril PO 20 mg DAILY DEANNA Administration Morphine Sulfate 2 mg 11/26/17 08:03 11/26/17 12:45 Morphine IVP 2 mg Q2H PRN Administration Pain 8 to 10 Oxycodone HCl 5 mg 11/26/17 08:03 11/27/17 09:18 Roxicodone PO 5 mg Q4HR PRN Administration Pain 5 to 7 Oxycodone HCl 10 mg 11/26/17 08:03 11/26/17 16:09 Roxicodone PO 10 mg Q4HR PRN Administration Pain 8 to 10 Polyethylene Glycol 17 gm 11/26/17 09:00 11/27/17 09:13 Miralax PO Not Given DAILY DEANNA Sodium Chloride 10 ml 11/26/17 09:00 11/27/17 09:14 Normal Saline Flush 0.9% IVP Not Given 0100,0900,1700 DEANNA Sotalol HCl 80 mg 11/26/17 21:00 11/27/17 09:09 Betapace PO 80 mg BID DEANNA Administration - Lab Result Lab results reviewed: Yes Fish Bone Diagrams: 11/27/17 05:10 11/27/17 05:10 - EKG Results EKG Interpreted Independently: Yes - Diagnostic Imaging Results Diagnostic Imaging Results: Final report reviewed - Additional Planning Condition/Complexity: Guarded My Orders: My Active Orders 11/26/17 21:00 Sotalol [Betapace] 80 mg PO BID 11/27/17 09:00 Fluticasone [Flonase] 2 sprays KENDRA DAILY Lisinopril [Zestril] 20 mg PO DAILY diltiaZEM CD [Cardizem Cd] 180 mg PO DAILY Consult/Specialty: Other (Ortho) Plan Discussed with:: Patient, Significant Other Time Spent: 31-60 minutes Subjective - Subjective Patient Reports: Other (Very confused, demented, denies pain. Eating well.) Nursing Reports: Confused Objective Vital Signs: Vital Signs - 24 hr 11/26/17 11/26/17 11/27/17 15:40 20:09 00:45 Temperature 36.8 C 36.8 C 36.5 C Heart Rate [ 63 62 75 Brachial] Respiratory 16 16 18 Rate Blood Pressure 160/85 H 145/75 H 149/87 H [Left Brachial artery] O2 Saturation 97 94 94 11/27/17 08:00 Temperature 37.0 C Heart Rate [ 71 Brachial] Respiratory 16 Rate Blood Pressure 156/74 H [Left Brachial artery] O2 Saturation 98 Oxygen O2 Source Room air I&O (Last 24 Hrs): Intake and Output Totals x24h 11/25/17 11/26/17 11/27/17 23:59 23:59 23:59 Intake Total 2120 1860 Output Total 2675 600 Balance -555 1260 General: Alert, Cooperative, No acute distress, Other (Demnted, confused, does not know name of hospital or year, she does not remember me and does not know why she is here) HEENT: Atraumatic, PERRLA, EOMI, Mucous membr. moist/pink Neck: Supple, No JVD, No thyromegaly, +2 carotid pulse wo bruit Lymphatic: no adenopathy Neuro: Alert, Focal Deficits, Non Focal, CN 2-12 Grossly Intact, Other (A&Ox1) Cardiovascular: No murmurs, Other (Irregularly, irregular) Respiratory: Chest non-tender, No respiratory distress, Breath sounds nml Abdomen: Normal bowel sounds, Soft, No tenderness, No hepatospenomegaly Extremities: No clubbing, No cyanosis, No edema, Normal pulses, Other (LLE externally rotated and shortened) Skin: No rashes, No breakdown - Results Results: Laboratory Results WBC 9.3 x10^3/uL (4.8-10.8) 11/27/17 05:10 RBC 4.31 10^6/uL (4.20-5.40) 11/27/17 05:10 Hgb 13.3 g/dL (12.0-16.0) 11/27/17 05:10 Hct 39.2 % (37.0-47.0) 11/27/17 05:10 MCV 91.0 fL (81.0-99.0) 11/27/17 05:10 MCH 30.9 pg (27.0-31.0) 11/27/17 05:10 MCHC 33.9 g/dL (32.0-36.0) 11/27/17 05:10 RDW 13.3 % (12.0-15.0) 11/27/17 05:10 Plt Count 177 10^3/uL (130-450) 11/27/17 05:10 MPV 8.0 fL (7.9-10.8) 11/27/17 05:10 Neut # (Auto) 7.2 10^3/uL (1.5-6.6) H 11/27/17 05:10 Lymph # (Auto) 1.0 10^3/uL (1.5-3.5) L 11/27/17 05:10 [place] # (Auto) 1.0 10^3/uL (0.0-1.0) 11/27/17 05:10 Eos # (Auto) 0.0 10^3/uL (0.0-0.7) 11/27/17 05:10 Baso # (Auto) 0.0 10^3/uL (0.0-0.1) 11/27/17 05:10 Absolute Nucleated RBC 0.00 x10^3/uL 11/27/17 05:10 Nucleated RBC % 0.0 /100WBC 11/27/17 05:10 PT 12.9 secs (9.9-12.6) H 11/27/17 05:10 INR 1.1 (0.8-1.2) 11/27/17 05:10 APTT 29.9 secs (24.9-33.3) 11/26/17 06:10 Sodium 135 mmol/L (135-145) 11/27/17 05:10 Potassium 3.6 mmol/L (3.5-5.0) 11/27/17 05:10 Chloride 102 mmol/L (101-111) 11/27/17 05:10 Carbon Dioxide 25 mmol/L (21-32) 11/27/17 05:10 Anion Gap 8.0 (6-13) 11/27/17 05:10 BUN 16 mg/dL (6-20) 11/27/17 05:10 Creatinine 0.7 mg/dL (0.4-1.0) 11/27/17 05:10 Estimated GFR (MDRD) 79 (>89) L 11/27/17 05:10 Glucose 194 mg/dL (70-100) H 11/27/17 05:10 POC Whole Bld Glucose 142 mg/dL (70 - 100) H 11/27/17 11:19 Glycated Hemoglobin 6.8 % (4.6-6.2) H 11/27/17 05:10 Estim Average Glucose 148 (70-100) H 11/27/17 05:10 Calcium 8.1 mg/dL (8.5-10.3) L 11/27/17 05:10 Phosphorus 3.4 mg/dL (2.5-4.6) 11/27/17 05:10 Magnesium 1.9 mg/dL (1.7-2.8) 11/27/17 05:10 Total Bilirubin 0.9 mg/dL (0.2-1.0) 11/27/17 05:10 AST 19 IU/L (10-42) 11/27/17 05:10 ALT 15 IU/L (10-60) 11/27/17 05:10 Alkaline Phosphatase 58 IU/L (42-121) 11/27/17 05:10 Total Protein 5.8 g/dL (6.7-8.2) L 11/27/17 05:10 Albumin 3.2 g/dL (3.2-5.5) 11/27/17 05:10 Globulin 2.6 g/dL (2.1-4.2) 11/27/17 05:10 Albumin/Globulin Ratio 1.2 (1.0-2.2) 11/27/17 05:10 Urine Color LIGHT YELLOW 11/26/17 06:10 Urine Clarity CLEAR (CLEAR) 11/26/17 06:10 Urine pH 7.5 PH (5.0-7.5) 11/26/17 06:10 Ur Specific [place] 1.010 (1.002-1.030) 11/26/17 06:10 Urine Protein NEGATIVE mg/dL (NEGATIVE) 11/26/17 06:10 Urine Glucose (UA) NEGATIVE mg/dL (NEGATIVE) 11/26/17 06:10 Urine Ketones NEGATIVE mg/dL (NEGATIVE) 11/26/17 06:10 Urine Occult Blood NEGATIVE (NEGATIVE) 11/26/17 06:10 Urine Nitrite NEGATIVE (NEGATIVE) 11/26/17 06:10 Urine Bilirubin NEGATIVE (NEGATIVE) 11/26/17 06:10 Urine Urobilinogen 0.2 (NORMAL) E.U./dL (NORMAL) 11/26/17 06:10 Ur Leukocyte Esterase NEGATIVE (NEGATIVE) 11/26/17 06:10 Ur Microscopic Review NOT INDICATED 11/26/17 06:10 Urine Culture Comments NOT INDICATED 11/26/17 06:10 ABX Reporting Has patient been on IV antibiotics over the past 48 hours?: No Current Medications - Current Medications Current Medications: Active Medications Generic Name Dose Route Start Last Admin Trade Name Freq PRN Reason Stop Dose Admin Acetaminophen 650 mg 11/26/17 08:03 11/27/17 09:19 Tylenol PO 650 mg Q4HR PRN Administration Pain 1 to 4 Diltiazem HCl 180 mg 11/27/17 09:00 11/27/17 09:10 Cardizem Cd PO 180 mg DAILY DEANNA Administration Famotidine 20 mg 11/26/17 09:00 11/27/17 09:10 Pepcid PO 20 mg DAILY DEANNA Administration Fluticasone Propionate 2 sprays 11/27/17 09:00 11/27/17 09:51 Flonase KENDRA 2 sprays DAILY DEANNA Administration Sodium Chloride 1,000 mls @ 100 mls/hr 11/26/17 09:00 11/27/17 09:11 Normal Saline 0.9% IV 100 mls/hr .Q10H DEANNA Administration Insulin Aspart 1 - 5 unit 11/26/17 12:00 11/27/17 11:49 Novolog SUBQ 1 unit 0800,1200,1700,2100 DEANNA Administration Protocol Lisinopril 20 mg 11/27/17 09:00 11/27/17 09:10 Zestril PO 20 mg DAILY DEANNA Administration Morphine Sulfate 2 mg 11/26/17 08:03 11/26/17 12:45 Morphine IVP 2 mg Q2H PRN Administration Pain 8 to 10 Ondansetron HCl 4 mg 11/26/17 08:03 Zofran Inj IVP Q6HR PRN Nausea / Vomiting Oxycodone HCl 5 mg 11/26/17 08:03 11/27/17 09:18 Roxicodone PO 5 mg Q4HR PRN Administration Pain 5 to 7 Oxycodone HCl 10 mg 11/26/17 08:03 11/26/17 16:09 Roxicodone PO 10 mg Q4HR PRN Administration Pain 8 to 10 Polyethylene Glycol 17 gm 11/26/17 09:00 11/27/17 09:13 Miralax PO Not Given DAILY [facility] [place] Prochlorperazine Edisylate 10 mg 11/26/17 08:03 Compazine Inj IVP Q6HR PRN Nausea / Vomiting Promethazine HCl 25 mg 11/26/17 08:03 Phenergan Inj IM Q6HR PRN Nausea / Vomiting Sodium Chloride 10 ml 11/26/17 08:03 Normal Saline Flush 0.9% IVP PRN PRN NEEDED PER PROVIDER ORDERS Sodium Chloride 10 ml 11/26/17 09:00 11/27/17 09:14 Normal Saline Flush 0.9% IVP Not Given 0100,0900,1700 [facility] Sotalol HCl 80 mg 11/26/17 21:00 11/27/17 09:09 Betapace PO 80 mg BID DEANNA Administration Zolpidem Tartrate 5 mg 11/26/17 08:03 Ambien PO QPM PRN Insomnia Sotalol [Betapace] 80 mg ORAL BID 04/06/13 metFORMIN [Glucophage] 250 mg PO QDBREAKFAST 02/23/14 Lisinopril 20 mg PO DAILY 01/19/15 Acetaminophen 2 tab PO Q6HR PRN 11/26/17 Fluticasone [Flonase] 2 sprays KENDRA DAILY 11/26/17 Loperamide [Imodium] 2 mg PO DAILY PRN 11/26/17 Rivaroxaban [Xarelto] 20 mg PO QDBREAKFAST 11/26/17 diltiaZEM CD [Cardizem Cd] 180 mg PO DAILY 11/26/17
[2017-11-27] MEDS: MORPHINE 2 MG/ML SYRINGE IVP PRN ×2 (14:01→20:13)
--- NOTE | 2017-11-27 14:37 | PROVIDER PROGRESS NOTE ---
Subjective - Prog Note Date Prog Note Date: 11/27/17 Prog Note Time: 14:35 - Subjective Pt reports feeling: No change Objective - Vital Signs/Intake & Output Vital Signs: Vital Signs x48h Temp Pulse Resp BP Pulse Ox 11/27/17 08:00 37.0 C 71 16 156/74 H 98 Intake & Output: Intake & Output 11/24/17 11/25/17 11/26/17 11/27/17 23:59 23:59 23:59 23:59 Intake Total 2120 1960 Output Total 2675 600 Balance -555 1360 - Objective Extremities: positive: Other (Continues to refuse repositioning. Leg in abduction and ER. Toes up and down. Foot warm.) - Lab Results Fish Bones: 11/27/17 05:10 11/27/17 05:10 Other Labs: Lab Results x24hrs 11/27/17 11/27/17 11/27/17 Range/Units 11:19 07:38 05:10 WBC (4.8-10.8) x10^3/uL RBC (4.20-5.40) 10^6/uL Hgb (12.0-16.0) g/dL Hct (37.0-47.0) % MCV (81.0-99.0) fL MCH (27.0-31.0) pg MCHC (32.0-36.0) g/dL RDW (12.0-15.0) % Plt Count (130-450) 10^3/uL MPV (7.9-10.8) fL Neut # (Auto) (1.5-6.6) 10^3/uL Lymph # (Auto) (1.5-3.5) 10^3/uL [place] # (Auto) (0.0-1.0) 10^3/uL Eos # (Auto) (0.0-0.7) 10^3/uL Baso # (Auto) (0.0-0.1) 10^3/uL Absolute Nucleated RBC x10^3/uL Nucleated RBC % /100WBC PT (9.9-12.6) secs INR (0.8-1.2) Sodium (135-145) mmol/L Potassium (3.5-5.0) mmol/L Chloride (101-111) mmol/L Carbon Dioxide (21-32) mmol/L Anion Gap (6-13) BUN (6-20) mg/dL Creatinine (0.4-1.0) mg/dL Estimated GFR (MDRD) (>89) Glucose (70-100) mg/dL POC Whole Bld Glucose 142 H 170 H (70 - 100) mg/dL Glycated Hemoglobin 6.8 H (4.6-6.2) % Estim Average Glucose 148 H (70-100) Calcium (8.5-10.3) mg/dL Phosphorus (2.5-4.6) mg/dL Magnesium (1.7-2.8) mg/dL Total Bilirubin (0.2-1.0) mg/dL AST (10-42) IU/L ALT (10-60) IU/L Alkaline Phosphatase (42-121) IU/L Total Protein (6.7-8.2) g/dL Albumin (3.2-5.5) g/dL Globulin (2.1-4.2) g/dL Albumin/Globulin Ratio (1.0-2.2) 11/27/17 11/27/17 11/27/17 Range/Units 05:10 05:10 05:10 WBC 9.3 (4.8-10.8) x10^3/uL RBC 4.31 (4.20-5.40) 10^6/uL Hgb 13.3 (12.0-16.0) g/dL Hct 39.2 (37.0-47.0) % MCV 91.0 (81.0-99.0) fL MCH 30.9 (27.0-31.0) pg MCHC 33.9 (32.0-36.0) g/dL RDW 13.3 (12.0-15.0) % Plt Count 177 (130-450) 10^3/uL MPV 8.0 (7.9-10.8) fL Neut # (Auto) 7.2 H (1.5-6.6) 10^3/uL Lymph # (Auto) 1.0 L (1.5-3.5) 10^3/uL [place] # (Auto) 1.0 (0.0-1.0) 10^3/uL Eos # (Auto) 0.0 (0.0-0.7) 10^3/uL Baso # (Auto) 0.0 (0.0-0.1) 10^3/uL Absolute Nucleated RBC 0.00 x10^3/uL Nucleated RBC % 0.0 /100WBC PT 12.9 H (9.9-12.6) secs INR 1.1 (0.8-1.2) Sodium 135 (135-145) mmol/L Potassium 3.6 (3.5-5.0) mmol/L Chloride 102 (101-111) mmol/L Carbon Dioxide 25 (21-32) mmol/L Anion Gap 8.0 (6-13) BUN 16 (6-20) mg/dL Creatinine 0.7 (0.4-1.0) mg/dL Estimated GFR (MDRD) 79 L (>89) Glucose 194 H (70-100) mg/dL POC Whole Bld Glucose (70 - 100) mg/dL Glycated Hemoglobin (4.6-6.2) % Estim Average Glucose (70-100) Calcium 8.1 L (8.5-10.3) mg/dL Phosphorus 3.4 (2.5-4.6) mg/dL Magnesium 1.9 (1.7-2.8) mg/dL Total Bilirubin 0.9 (0.2-1.0) mg/dL AST 19 (10-42) IU/L ALT 15 (10-60) IU/L Alkaline Phosphatase 58 (42-121) IU/L Total Protein 5.8 L (6.7-8.2) g/dL Albumin 3.2 (3.2-5.5) g/dL Globulin 2.6 (2.1-4.2) g/dL Albumin/Globulin Ratio 1.2 (1.0-2.2) 11/26/17 11/26/17 11/26/17 Range/Units 20:27 16:35 11:19 WBC (4.8-10.8) x10^3/uL RBC (4.20-5.40) 10^6/uL Hgb (12.0-16.0) g/dL Hct (37.0-47.0) % MCV (81.0-99.0) fL MCH (27.0-31.0) pg MCHC (32.0-36.0) g/dL RDW (12.0-15.0) % Plt Count (130-450) 10^3/uL MPV (7.9-10.8) fL Neut # (Auto) (1.5-6.6) 10^3/uL Lymph # (Auto) (1.5-3.5) 10^3/uL [place] # (Auto) (0.0-1.0) 10^3/uL Eos # (Auto) (0.0-0.7) 10^3/uL Baso # (Auto) (0.0-0.1) 10^3/uL Absolute Nucleated RBC x10^3/uL Nucleated RBC % /100WBC PT (9.9-12.6) secs INR (0.8-1.2) Sodium (135-145) mmol/L Potassium (3.5-5.0) mmol/L Chloride (101-111) mmol/L Carbon Dioxide (21-32) mmol/L Anion Gap (6-13) BUN (6-20) mg/dL Creatinine (0.4-1.0) mg/dL Estimated GFR (MDRD) (>89) Glucose (70-100) mg/dL POC Whole Bld Glucose 154 H 165 H 123 H (70 - 100) mg/dL Glycated Hemoglobin (4.6-6.2) % Estim Average Glucose (70-100) Calcium (8.5-10.3) mg/dL Phosphorus (2.5-4.6) mg/dL Magnesium (1.7-2.8) mg/dL Total Bilirubin (0.2-1.0) mg/dL AST (10-42) IU/L ALT (10-60) IU/L Alkaline Phosphatase (42-121) IU/L Total Protein (6.7-8.2) g/dL Albumin (3.2-5.5) g/dL Globulin (2.1-4.2) g/dL Albumin/Globulin Ratio (1.0-2.2) Assessment/Plan - Problem List (1) Intertrochanteric fracture of left hip Impression: Plan is [facility]. Dr. Fleming to assume her care tomorrow. Qualifiers: Encounter type: initial encounter Fracture type: closed Fracture alignment: nondisplaced Qualified Code(s): S72.145A - Nondisplaced intertrochanteric fracture of left femur, initial encounter for closed fracture
[2017-11-28] MEDS: SODIUM CHLORIDE FLUSH 0.9% 10 ML SYRINGE IVP SCH ×4 (00:51→23:59)
[2017-11-28 05:01] LABS: BASOPHILS % (AUTO) 0.3 %; EOSINOPHILS % (AUTO) 0.7 %; HGB - HEMOGLOBIN 11.8 g/dL (12.0-16.0); LYMPHOCYTES # (AUTO) 1.1 10^3/uL (1.5-3.5); LYMPHOCYTES % (AUTO) 17.4 %; MEAN CORPUSCULAR HEMOGLOBIN 31.4 pg (27.0-31.0); MEAN CORPUSCULAR HGB CONC 34.7 g/dL (32.0-36.0); MEAN CORPUSCULAR VOLUME 90.5 fL (81.0-99.0); MEAN PLATELET VOLUME 7.1 fL (7.9-10.8); MONOCYTES # (AUTO) 0.8 10^3/uL (0.0-1.0); MONOCYTES % (AUTO) 11.9 %; NEUTROPHILS # (AUTO) 4.5 10^3/uL (1.5-6.6); NEUTROPHILS % (AUTO) 69.7 %; PLT - PLATELET COUNT 126 10^3/uL (130-450); RED BLOOD COUNT 3.76 10^6/uL (4.20-5.40); RED CELL DISTRIBUTION WIDTH 13.5 % (12.0-15.0); WHITE BLOOD COUNT 6.5 x10^3/uL (4.8-10.8)
[2017-11-28 05:08] LABS: ALBUMIN 2.9 g/dL (3.2-5.5); ALBUMIN/GLOBULIN RATIO 1.3 (1.0-2.2); BILIRUBIN,TOTAL 0.9 mg/dL (0.2-1.0); CALCIUM 7.5 mg/dL (8.5-10.3); CREATININE 0.6 mg/dL (0.4-1.0); MAGNESIUM 1.7 mg/dL (1.7-2.8); PHOSPHORUS 2.6 mg/dL (2.5-4.6); TOTAL PROTEIN 5.1 g/dL (6.7-8.2)
[2017-11-28] MEDS: SODIUM CHLORIDE 0.9% 1,000 ML IV SCH ×2 (05:50→15:52)
[2017-11-28] MEDS: INSULIN ASPART 300 UNIT/3 ML PEN SUBQ SCH ×4 (06:08→21:05)
[2017-11-28] MEDS: INSULIN REGULAR HUMAN 100 UNIT/1 ML 10 ML MDV SUBQ SCH ×2 (06:08→11:46)
[2017-11-28] MEDS ORDERED: ceFAZolin 2 GM/50 ML 2 GM/50 ML BAG IV ONE (08:15)
[2017-11-28] MEDS ORDERED: NS W/20 MEQ KCL 1,000 ML IV SCH (09:00)
[2017-11-28] MEDS: LISINOPRIL 20 MG TABLET PO SCH (09:05)
[2017-11-28] MEDS: FAMOTIDINE 20 MG TABLET PO SCH (09:05)
[2017-11-28] MEDS: SOTALOL 80 MG TABLET PO SCH ×2 (09:05→20:57)
[2017-11-28] MEDS: diltiaZEM CD 180 MG CAPSULE PO SCH (09:05)
[2017-11-28] MEDS: FLUTICASONE NASAL SPRAY NAS SCH (09:06)
--- NOTE | 2017-11-28 09:29 | PROVIDER PROGRESS NOTE ---
Subjective - Prog Note Date Prog Note Date: 11/28/17 Prog Note Time: 09:27 - Subjective Pt reports feeling: No change Objective - Vital Signs/Intake & Output Vital Signs: Vital Signs x48h Temp Pulse Resp BP Pulse Ox 11/28/17 07:55 36.4 C L 71 18 179/70 H 93 Intake & Output: Intake & Output 11/25/17 11/26/17 11/27/17 11/28/17 23:59 23:59 23:59 23:59 Intake Total 2120 3630.000 1000 Output Total 2675 2050 700 Balance -555 1580.000 300 - Lab Results Fish Bones: 11/28/17 04:45 11/28/17 04:45 Other Labs: Lab Results x24hrs 11/28/17 11/28/17 11/28/17 Range/Units 06:05 04:45 04:45 WBC 6.5 (4.8-10.8) x10^3/uL RBC 3.76 L (4.20-5.40) 10^6/uL Hgb 11.8 L (12.0-16.0) g/dL Hct 34.0 L (37.0-47.0) % MCV 90.5 (81.0-99.0) fL MCH 31.4 H (27.0-31.0) pg MCHC 34.7 (32.0-36.0) g/dL RDW 13.5 (12.0-15.0) % Plt Count 126 L (130-450) 10^3/uL MPV 7.1 L (7.9-10.8) fL Neut # (Auto) 4.5 (1.5-6.6) 10^3/uL Lymph # (Auto) 1.1 L (1.5-3.5) 10^3/uL [place] # (Auto) 0.8 (0.0-1.0) 10^3/uL Eos # (Auto) 0.0 (0.0-0.7) 10^3/uL Baso # (Auto) 0.0 (0.0-0.1) 10^3/uL Absolute Nucleated RBC 0.00 x10^3/uL Nucleated RBC % 0.0 /100WBC Sodium 135 (135-145) mmol/L Potassium 3.1 L (3.5-5.0) mmol/L Chloride 102 (101-111) mmol/L Carbon Dioxide 28 (21-32) mmol/L Anion Gap 5.0 L (6-13) BUN 11 (6-20) mg/dL Creatinine 0.6 (0.4-1.0) mg/dL Estimated GFR (MDRD) 95 (>89) Glucose 148 H (70-100) mg/dL POC Whole Bld Glucose 134 H (70 - 100) mg/dL Calcium 7.5 L (8.5-10.3) mg/dL Phosphorus 2.6 (2.5-4.6) mg/dL Magnesium 1.7 (1.7-2.8) mg/dL Total Bilirubin 0.9 (0.2-1.0) mg/dL AST 18 (10-42) IU/L ALT 12 (10-60) IU/L Alkaline Phosphatase 51 (42-121) IU/L Total Protein 5.1 L (6.7-8.2) g/dL Albumin 2.9 L (3.2-5.5) g/dL Globulin 2.2 (2.1-4.2) g/dL Albumin/Globulin Ratio 1.3 (1.0-2.2) 11/27/17 11/27/17 11/27/17 Range/Units 20:49 16:40 11:19 WBC (4.8-10.8) x10^3/uL RBC (4.20-5.40) 10^6/uL Hgb (12.0-16.0) g/dL Hct (37.0-47.0) % MCV (81.0-99.0) fL MCH (27.0-31.0) pg MCHC (32.0-36.0) g/dL RDW (12.0-15.0) % Plt Count (130-450) 10^3/uL MPV (7.9-10.8) fL Neut # (Auto) (1.5-6.6) 10^3/uL Lymph # (Auto) (1.5-3.5) 10^3/uL [place] # (Auto) (0.0-1.0) 10^3/uL Eos # (Auto) (0.0-0.7) 10^3/uL Baso # (Auto) (0.0-0.1) 10^3/uL Absolute Nucleated RBC x10^3/uL Nucleated RBC % /100WBC Sodium (135-145) mmol/L Potassium (3.5-5.0) mmol/L Chloride (101-111) mmol/L Carbon Dioxide (21-32) mmol/L Anion Gap (6-13) BUN (6-20) mg/dL Creatinine (0.4-1.0) mg/dL Estimated GFR (MDRD) (>89) Glucose (70-100) mg/dL POC Whole Bld Glucose 176 H 143 H 142 H (70 - 100) mg/dL Calcium (8.5-10.3) mg/dL Phosphorus (2.5-4.6) mg/dL Magnesium (1.7-2.8) mg/dL Total Bilirubin (0.2-1.0) mg/dL AST (10-42) IU/L ALT (10-60) IU/L Alkaline Phosphatase (42-121) IU/L Total Protein (6.7-8.2) g/dL Albumin (3.2-5.5) g/dL Globulin (2.1-4.2) g/dL Albumin/Globulin Ratio (1.0-2.2) 11/27/17 11/26/17 11/26/17 Range/Units 07:38 20:27 16:35 WBC (4.8-10.8) x10^3/uL RBC (4.20-5.40) 10^6/uL Hgb (12.0-16.0) g/dL Hct (37.0-47.0) % MCV (81.0-99.0) fL MCH (27.0-31.0) pg MCHC (32.0-36.0) g/dL RDW (12.0-15.0) % Plt Count (130-450) 10^3/uL MPV (7.9-10.8) fL Neut # (Auto) (1.5-6.6) 10^3/uL Lymph # (Auto) (1.5-3.5) 10^3/uL [place] # (Auto) (0.0-1.0) 10^3/uL Eos # (Auto) (0.0-0.7) 10^3/uL Baso # (Auto) (0.0-0.1) 10^3/uL Absolute Nucleated RBC x10^3/uL Nucleated RBC % /100WBC Sodium (135-145) mmol/L Potassium (3.5-5.0) mmol/L Chloride (101-111) mmol/L Carbon Dioxide (21-32) mmol/L Anion Gap (6-13) BUN (6-20) mg/dL Creatinine (0.4-1.0) mg/dL Estimated GFR (MDRD) (>89) Glucose (70-100) mg/dL POC Whole Bld Glucose 170 H 154 H 165 H (70 - 100) mg/dL Calcium (8.5-10.3) mg/dL Phosphorus (2.5-4.6) mg/dL Magnesium (1.7-2.8) mg/dL Total Bilirubin (0.2-1.0) mg/dL AST (10-42) IU/L ALT (10-60) IU/L Alkaline Phosphatase (42-121) IU/L Total Protein (6.7-8.2) g/dL Albumin (3.2-5.5) g/dL Globulin (2.1-4.2) g/dL Albumin/Globulin Ratio (1.0-2.2) 11/26/17 Range/Units 11:19 WBC (4.8-10.8) x10^3/uL RBC (4.20-5.40) 10^6/uL Hgb (12.0-16.0) g/dL Hct (37.0-47.0) % MCV (81.0-99.0) fL MCH (27.0-31.0) pg MCHC (32.0-36.0) g/dL RDW (12.0-15.0) % Plt Count (130-450) 10^3/uL MPV (7.9-10.8) fL Neut # (Auto) (1.5-6.6) 10^3/uL Lymph # (Auto) (1.5-3.5) 10^3/uL [place] # (Auto) (0.0-1.0) 10^3/uL Eos # (Auto) (0.0-0.7) 10^3/uL Baso # (Auto) (0.0-0.1) 10^3/uL Absolute Nucleated RBC x10^3/uL Nucleated RBC % /100WBC Sodium (135-145) mmol/L Potassium (3.5-5.0) mmol/L Chloride (101-111) mmol/L Carbon Dioxide (21-32) mmol/L Anion Gap (6-13) BUN (6-20) mg/dL Creatinine (0.4-1.0) mg/dL Estimated GFR (MDRD) (>89) Glucose (70-100) mg/dL POC Whole Bld Glucose 123 H (70 - 100) mg/dL Calcium (8.5-10.3) mg/dL Phosphorus (2.5-4.6) mg/dL Magnesium (1.7-2.8) mg/dL Total Bilirubin (0.2-1.0) mg/dL AST (10-42) IU/L ALT (10-60) IU/L Alkaline Phosphatase (42-121) IU/L Total Protein (6.7-8.2) g/dL Albumin (3.2-5.5) g/dL Globulin (2.1-4.2) g/dL Albumin/Globulin Ratio (1.0-2.2) - Diagnostic Imaging Diagnostic Imaging Comments: XR: IT hip fracture-mildly angulated - Other Results/Comments Other Results/Comments: EXAM: Hip - tender with painful motion. N/V ok distally Assessment/Plan - Problem List (1) Hip fracture Impression: PLAN: To OR today when blood available. It has been about 48 hours since last Xarelto dose. Discused with patient and her grandson about pro/con of surgery. Complications discussed and questions answered. Consult signed. Leg marked Qualifiers: Encounter type: initial encounter Fracture type: closed Laterality: left Qualified Code(s): S72.002A - Fracture of unspecified part of neck of left femur, initial encounter for closed fracture
--- NOTE | 2017-11-28 09:43 | CONSULTATION NOTE ---
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 She was in her usual state of health two days ago, when she apparently had a fall a t her care facility. On evaluation in the emergency room, she was noted to have a mildly displaced l eft intertrochanteric hip fracture. In addition to her fracture, she is noted to be a diabetic and w ith atrial fibrillation. She was on Xarelto medication for her atrial fibrillation. Her surgery was delayed until the Xarelto medication had diminished in its effectiveness with time. The patient denies any loss of consciousness, but is in her chronic state of confusion. Denies any w eakness or numbness in the lower extremity. No other associated injury noted. PHYSICAL EXAMINATION: The patient's left hip is minimally shortened and externally rotated. Does mackey ve pain with hip range of motion noted. Also, has lateral hip tenderness on palpation of the left si de as well. She is able to move the toes on command. Sensation appeared to be intact. Good capilla ry filling noted as well. X-RAYS: Show an intertrochanteric hip fracture with mild angulation. ASSESSMENT 1. Closed left intertrochanteric hip fracture. 2. Atrial fibrillation - has been on Xarelto as an outpatient. 3. Diabetes. 4. History of hypertension. PLAN: Discussed with the patient as well as her grandson who has power of business attorney, her diagnosis an d treatment options. The patient is somewhat confused and a bit agitated, but after discussion with her, she is agreeable as well to proceed with surgery as outlined. The grandson also is aware of her diagnosis and treatment options, and wishes to proceed with surgery as well. We will type and cross , and have available blood for her before we actually do her procedure. This is anticipated to be la ter this morning. Risks and benefits of surgery were explained to the patient and her grandson, incl uding blood loss, nerve damage, malunion, nonunion, blood clots, etc. They appeared to understand th e possible complications. Questions have been answered. Plan then on proceeding later today for berhane gical fixation of the fracture, when we have blood available in-house. The leg has been marked. A t elephone consent obtained with the grandson as well, who resides in [place]. TD: 11/28/2017 08:56
--- NOTE | 2017-11-28 11:53 | PROVIDER PROGRESS NOTE ---
Assessment/Plan - Problem List (1) Intertrochanteric fracture of left hip Qualifiers: Encounter type: initial encounter Fracture type: closed Fracture alignment: nondisplaced Qualified Code(s): S72.145A - Nondisplaced intertrochanteric fracture of left femur, initial encounter for closed fracture Assessment/Plan: Patient presented to ER after what is assumed to have been a mechanical fall at [facility]. The patient could not provide any details secondary to her dementia and poor short term memory. She was in pain on presentation and had shortened and externally rotated left leg. The patient x ray of her left hip revealed a intertrochanteric fracture of the left hip. According to the RCRI calculator the patients pre operative risk of major cardiac event is 0.9 %. Patient is on Xarelto for atrial fibrillation which will need to be held. It should be held for 3 does prior to surgery to reduce risk of bleeding. Plan: Holding xarelto Preoperative Echo shows normal EF and no major valvular abnormalities Patient to get surgery today Ortho on board IVFs Pain control with IV morphine PT consult post op Will restart xarelto post op (2) Atrial fibrillation Conclusion/Plan: On xarelto for anticoagulation. Rate controlled with sotolol and diltiazem. 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 use Diabetes mellitus complication status: with hyperglycemia Qualified Code(s): E11.65 - Type 2 diabetes mellitus with hyperglycemia (4) Hypertension Conclusion/Plan: BP stable Continued home meds Monitor BP Pain control Qualifiers: Hypertension type: essential hypertension Qualified Code(s): I10 - Essential (primary) hypertension (5) History of coronary artery disease Conclusion/Plan: Patient has history of CAD with stent No chest pain or shortness of breath currently Echo is normal Stable - Current Meds Current Meds: Current Medications Generic Name Dose Route Start Last Admin Trade Name Freq PRN Reason Stop Dose Admin Acetaminophen 650 mg 11/26/17 08:03 11/27/17 09:19 Tylenol PO 650 mg Q4HR PRN Administration Pain 1 to 4 Diltiazem HCl 180 mg 11/27/17 09:00 11/28/17 09:05 Cardizem Cd PO 180 mg DAILY DEANNA Administration Famotidine 20 mg 11/26/17 09:00 11/28/17 09:05 Pepcid PO 20 mg DAILY DEANNA Administration Fluticasone Propionate 2 sprays 11/27/17 09:00 11/28/17 09:06 Flonase KENDRA Not Given DAILY COUNT INCLUDES THE [facility] Potassium Chloride/Sodium Chloride 1,000 mls @ 125 mls/hr 11/28/17 09:00 02/05 09:05 Normal Saline 0.9% W/20 Meq Kcl IV 125 mls/hr .Q8H DEANNA Administration Insulin Aspart 1 - 5 unit 11/26/17 12:00 11/28/17 11:45 Novolog SUBQ Not Given 0800,1200,1700,2100 COUNT INCLUDES THE [facility] Protocol Insulin Human Regular 1 - 5 unit 11/28/17 06:00 11/28/17 11:46 Novolin R SUBQ Not Given Q6HR COUNT INCLUDES THE [facility] Protocol Lisinopril 20 mg 11/27/17 09:00 11/28/17 09:05 Zestril PO 20 mg DAILY COUNT INCLUDES THE [facility] Administration Morphine Sulfate 2 mg 11/26/17 08:03 11/27/17 20:13 Morphine IVP 2 mg Q2H PRN Administration Pain 8 to 10 Oxycodone HCl 5 mg 11/26/17 08:03 11/27/17 16:48 Roxicodone PO 5 mg Q4HR PRN Administration Pain 5 to 7 Oxycodone HCl 10 mg 11/26/17 08:03 11/26/17 16:09 Roxicodone PO 10 mg Q4HR PRN Administration Pain 8 to 10 Polyethylene Glycol 17 gm 11/26/17 09:00 11/27/17 20:13 Miralax PO 17 gm DAILY COUNT INCLUDES THE [facility] Administration Sodium Chloride 10 ml 11/26/17 09:00 11/28/17 09:06 Normal Saline Flush 0.9% IVP Not Given 0100,0900,1700 COUNT INCLUDES THE [facility] Sotalol HCl 80 mg 11/26/17 21:00 11/28/17 09:05 Betapace PO 80 mg BID DEANNA Administration - Lab Result Lab results reviewed: Yes Fish Bone Diagrams: 11/28/17 04:45 11/28/17 04:45 - Additional Planning Condition/Complexity: Guarded My Orders: My Active Orders 11/28/17 06:00 Insulin Regular Human [NovoLIN R] 1 - 5 unit SUBQ Q6HR 11/28/17 09:00 Ns W/20 Meq KCl [Normal Saline 0.9% W/20 Meq KCl] 1,000 ml IV 125 mls/hr 11/28/17 17:58 Docusate Sodium 250Mg Capsule [Colace 250Mg Capsule] 250 - 500 mg PO DAILY Senna [Senokot] 8.6 - 17.2 mg PO DAILY Consult/Specialty: Other (Ortho) Plan Discussed with:: Patient Time Spent: 31-60 minutes Subjective - Subjective Patient Reports: Other (She is demented and confused. States she wants more information about surgery. Does not remember why she is here. She wants to know credentials of ortho physician.) Nursing Reports: Confused Objective Vital Signs: Vital Signs - 24 hr 11/27/17 11/27/17 11/28/17 16:00 20:14 00:00 Temperature 36.8 C 36.6 C Heart Rate [ 56 L 63 65 Brachial] Respiratory 16 16 Rate Blood Pressure 141/51 H 148/54 H 154/56 H [Left Brachial artery] O2 Saturation 97 95 11/28/17 07:55 Temperature 36.4 C L Heart Rate [ 71 Brachial] Respiratory 18 Rate Blood Pressure 179/70 H [Left Brachial artery] O2 Saturation 93 Oxygen O2 Source Room air I&O (Last 24 Hrs): Intake and Output Totals x24h 11/26/17 11/27/17 11/28/17 23:59 23:59 23:59 Intake Total 2120 3630.000 1000 Output Total 2675 2050 700 Balance -555 1580.000 300 General: Alert, No acute distress, Other (COnfused, demented, A&O x1) HEENT: Atraumatic, PERRLA, EOMI, Mucous membr. moist/pink Neck: Supple, No JVD, No thyromegaly, +2 carotid pulse wo bruit, No LAD Lymphatic: no adenopathy Neuro: Alert, Non Focal, Other (A&Ox1) Cardiovascular: Regular rate, Normal S1, Normal S2, No murmurs Respiratory: Chest non-tender, No respiratory distress, Breath sounds nml Abdomen: Normal bowel sounds, Soft, No tenderness, No hepatospenomegaly Extremities: No clubbing, No cyanosis, No edema, Normal pulses, Other (Left lower extremity externally rotated and shortened) Skin: No rashes, No breakdown - Results Results: Laboratory Results WBC 6.5 x10^3/uL (4.8-10.8) 11/28/17 04:45 RBC 3.76 10^6/uL (4.20-5.40) L 11/28/17 04:45 Hgb 11.8 g/dL (12.0-16.0) L 11/28/17 04:45 Hct 34.0 % (37.0-47.0) L 11/28/17 04:45 MCV 90.5 fL (81.0-99.0) 11/28/17 04:45 MCH 31.4 pg (27.0-31.0) H 11/28/17 04:45 MCHC 34.7 g/dL (32.0-36.0) 11/28/17 04:45 RDW 13.5 % (12.0-15.0) 11/28/17 04:45 Plt Count 126 10^3/uL (130-450) L 11/28/17 04:45 MPV 7.1 fL (7.9-10.8) L 11/28/17 04:45 Neut # (Auto) 4.5 10^3/uL (1.5-6.6) 11/28/17 04:45 Lymph # (Auto) 1.1 10^3/uL (1.5-3.5) L 11/28/17 04:45 [place] # (Auto) 0.8 10^3/uL (0.0-1.0) 11/28/17 04:45 Eos # (Auto) 0.0 10^3/uL (0.0-0.7) 11/28/17 04:45 Baso # (Auto) 0.0 10^3/uL (0.0-0.1) 11/28/17 04:45 Absolute Nucleated RBC 0.00 x10^3/uL 11/28/17 04:45 Nucleated RBC % 0.0 /100WBC 11/28/17 04:45 PT 12.9 secs (9.9-12.6) H 11/27/17 05:10 INR 1.1 (0.8-1.2) 11/27/17 05:10 APTT 29.9 secs (24.9-33.3) 11/26/17 06:10 Sodium 135 mmol/L (135-145) 11/28/17 04:45 Potassium 3.1 mmol/L (3.5-5.0) L 11/28/17 04:45 Chloride 102 mmol/L (101-111) 11/28/17 04:45 Carbon Dioxide 28 mmol/L (21-32) 11/28/17 04:45 Anion Gap 5.0 (6-13) L 11/28/17 04:45 BUN 11 mg/dL (6-20) 11/28/17 04:45 Creatinine 0.6 mg/dL (0.4-1.0) 11/28/17 04:45 Estimated GFR (MDRD) 95 (>89) 11/28/17 04:45 Glucose 148 mg/dL (70-100) H 11/28/17 04:45 POC Whole Bld Glucose 151 mg/dL (70 - 100) H 11/28/17 11:23 Glycated Hemoglobin 6.8 % (4.6-6.2) H 11/27/17 05:10 Estim Average Glucose 148 (70-100) H 11/27/17 05:10 Calcium 7.5 mg/dL (8.5-10.3) L 11/28/17 04:45 Phosphorus 2.6 mg/dL (2.5-4.6) 11/28/17 04:45 Magnesium 1.7 mg/dL (1.7-2.8) 11/28/17 04:45 Total Bilirubin 0.9 mg/dL (0.2-1.0) 11/28/17 04:45 AST 18 IU/L (10-42) 11/28/17 04:45 ALT 12 IU/L (10-60) 11/28/17 04:45 Alkaline Phosphatase 51 IU/L (42-121) 11/28/17 04:45 Total Protein 5.1 g/dL (6.7-8.2) L 11/28/17 04:45 Albumin 2.9 g/dL (3.2-5.5) L 11/28/17 04:45 Globulin 2.2 g/dL (2.1-4.2) 11/28/17 04:45 Albumin/Globulin Ratio 1.3 (1.0-2.2) 11/28/17 04:45 Urine Color LIGHT YELLOW 11/26/17 06:10 Urine Clarity CLEAR (CLEAR) 11/26/17 06:10 Urine pH 7.5 PH (5.0-7.5) 11/26/17 06:10 Ur Specific [place] 1.010 (1.002-1.030) 11/26/17 06:10 Urine Protein NEGATIVE mg/dL (NEGATIVE) 11/26/17 06:10 Urine Glucose (UA) NEGATIVE mg/dL (NEGATIVE) 11/26/17 06:10 Urine Ketones NEGATIVE mg/dL (NEGATIVE) 11/26/17 06:10 Urine Occult Blood NEGATIVE (NEGATIVE) 11/26/17 06:10 Urine Nitrite NEGATIVE (NEGATIVE) 11/26/17 06:10 Urine Bilirubin NEGATIVE (NEGATIVE) 11/26/17 06:10 Urine Urobilinogen 0.2 (NORMAL) E.U./dL (NORMAL) 11/26/17 06:10 Ur Leukocyte Esterase NEGATIVE (NEGATIVE) 11/26/17 06:10 Ur Microscopic Review NOT INDICATED 11/26/17 06:10 Urine Culture Comments NOT INDICATED 11/26/17 06:10 Blood Type A POSITIVE 11/28/17 08:35 Blood Type Recheck A POSITIVE 11/28/17 04:45 Antibody Screen NEGATIVE 11/28/17 08:35 Crossmatch IS Only See Detail 11/28/17 08:35 ABX Reporting Has patient been on IV antibiotics over the past 48 hours?: No Current Medications - Current Medications Current Medications: Active Medications Generic Name Dose Route Start Last Admin Trade Name Freq PRN Reason Stop Dose Admin Acetaminophen 650 mg 11/26/17 08:03 11/27/17 09:19 Tylenol PO 650 mg Q4HR PRN Administration Pain 1 to 4 Diltiazem HCl 180 mg 11/27/17 09:00 11/28/17 09:05 Cardizem Cd PO 180 mg DAILY DEANNA Administration Docusate Sodium 250 - 500 mg 11/28/17 17:58 Colace 250mg Capsule PO DAILY DEANNA Famotidine 20 mg 11/26/17 09:00 08/10/18 09:05 Pepcid PO 20 mg DAILY COUNT INCLUDES THE [facility] Administration Fluticasone Propionate 2 sprays 11/27/17 09:00 11/28/17 09:06 Flonase KENDRA Not Given DAILY COUNT INCLUDES THE [facility] Potassium Chloride/Sodium Chloride 1,000 mls @ 125 mls/hr 11/28/17 09:00 02/05 09:05 Normal Saline 0.9% W/20 Meq Kcl IV 125 mls/hr .Q8H DEANNA Administration Insulin Aspart 1 - 5 unit 11/26/17 12:00 11/28/17 11:45 Novolog SUBQ Not Given 0800,1200,1700,2100 COUNT INCLUDES THE [facility] Protocol Insulin Human Regular 1 - 5 unit 11/28/17 06:00 11/28/17 11:46 Novolin R SUBQ Not Given Q6HR COUNT INCLUDES THE [facility] Protocol Lisinopril 20 mg 11/27/17 09:00 11/28/17 09:05 Zestril PO 20 mg DAILY COUNT INCLUDES THE [facility] Administration Morphine Sulfate 2 mg 11/26/17 08:03 11/27/17 20:13 Morphine IVP 2 mg Q2H PRN Administration Pain 8 to 10 Ondansetron HCl 4 mg 11/26/17 08:03 Zofran Inj IVP Q6HR PRN Nausea / Vomiting Oxycodone HCl 5 mg 11/26/17 08:03 11/27/17 16:48 Roxicodone PO 5 mg Q4HR PRN Administration Pain 5 to 7 Oxycodone HCl 10 mg 11/26/17 08:03 11/26/17 16:09 Roxicodone PO 10 mg Q4HR PRN Administration Pain 8 to 10 Polyethylene Glycol 17 gm 11/26/17 09:00 11/27/17 20:13 Miralax PO 17 gm DAILY COUNT INCLUDES THE [facility] Administration Prochlorperazine Edisylate 10 mg 11/26/17 08:03 Compazine Inj IVP Q6HR PRN Nausea / Vomiting Promethazine HCl 25 mg 11/26/17 08:03 Phenergan Inj IM Q6HR PRN Nausea / Vomiting Senna 8.6 - 17.2 mg 11/28/17 17:58 Senokot PO DAILY COUNT INCLUDES THE [facility] Sodium Chloride 10 ml 11/26/17 08:03 Normal Saline Flush 0.9% IVP PRN PRN NEEDED PER PROVIDER ORDERS Sodium Chloride 10 ml 11/26/17 09:00 11/28/17 09:06 Normal Saline Flush 0.9% IVP Not Given 0100,0900,1700 DEANNA Sotalol HCl 80 mg 11/26/17 21:00 11/28/17 09:05 Betapace PO 80 mg BID DEANNA Administration Zolpidem Tartrate 5 mg 11/26/17 08:03 Ambien PO QPM PRN Insomnia Sotalol [Betapace] 80 mg ORAL BID 04/06/13 metFORMIN [Glucophage] 250 mg PO QDBREAKFAST 02/23/14 Lisinopril 20 mg PO DAILY 01/19/15 Acetaminophen 2 tab PO Q6HR PRN 11/26/17 Fluticasone [Flonase] 2 sprays KENDRA DAILY 11/26/17 Loperamide [Imodium] 2 mg PO DAILY PRN 11/26/17 Rivaroxaban [Xarelto] 20 mg PO QDBREAKFAST 11/26/17 diltiaZEM CD [Cardizem Cd] 180 mg PO DAILY 11/26/17
[2017-11-28] MEDS ORDERED: BUPIVACAINE 0.5%-EPI 1:200000 PF 30 ML VIAL ONE (11:57)
[2017-11-28] MEDS ORDERED: LACTATED RINGERS 1,000 ML IV ONE (12:34)
[2017-11-28] MEDS ORDERED: BUPIVACAINE 0.5%-EPI 1:200000 PF 30 ML VIAL SUBQ ONE ×2 (13:55)
--- NOTE | 2017-11-28 14:31 | OPERATIVE REPORT ---
Operative Report - General Admit Date: 11/26/17 Procedure Date: 11/28/17 Planned Procedure: Short InterTan nailing left IT hip fracture Pre-Op Diagnosis: Left hip fracture Procedure Performed: Closed reduction and short interTan nailing of left hip fracture Post Op Diagnosis: Same - Procedure Note Primary Surgeon: Marlon Fleming MD Anesthesia Provider: Dr. Polanco Anesthesia Technique: General ET tube IV Fluids (mL): 800 Estimated Blood Loss (mL): 150 Urine Output (mL): 300 Complications: none
[2017-11-28] MEDS ORDERED: ePHEDrine 50 MG/ML VIAL IVP ONE (14:35)
[2017-11-28] MEDS ORDERED: fentaNYL 100 MCG/2 ML VIAL IVP ONE (14:35)
[2017-11-28] MEDS ORDERED: ROCURONIUM 50 MG/5 ML VIAL IVP ONE (14:35)
[2017-11-28] MEDS ORDERED: LIDOCAINE-MPF 2% 5 ML VIAL IM ONE (14:35)
[2017-11-28] MEDS ORDERED: PROPOFOL 200 MG/20 ML VIAL IVP ONE (14:35)
[2017-11-28] MEDS ORDERED: PHENYLEPHRINE 50 MG/5 ML VIAL IV ONE (14:35)
--- NOTE | 2017-11-28 14:41 | XRAY Report ---
Procedure Date: 11/28/2017 Accession Number: [id number] / [id number] Procedure: XR - Hip w/Pelvis 1V LT CPT Code: FULL RESULT: EXAM: Hip w/Pelvis 1V LT, OR C-Arm Procedure DATE: 11/28/2017 2:15 PM CLINICAL HISTORY: Left hip C-arm images for Hip Nailing COMPARISON: Pelvis radiographs 11/26/2017. TECHNIQUE: Intraoperative images of the left hip nailing as well as intraoperative left hip radiographs. Reported fluoroscopy time: 29 seconds. 4 images. FINDINGS: Intertrochanteric fracture now status post medullary nail with partially threaded cannulated femoral neck screw and proximal interlocking screw visualized. No new fracture is identified. IMPRESSION: ORIF left intertrochanteric fracture. RADIA
--- NOTE | 2017-11-28 14:41 | XRAY Report ---
Procedure Date: 11/28/2017 Accession Number: [id number] / [id number] Procedure: FL - OR C-Arm Procedure CPT Code: FULL RESULT: EXAM: Hip w/Pelvis 1V LT, OR C-Arm Procedure DATE: 11/28/2017 2:15 PM CLINICAL HISTORY: Left hip C-arm images for Hip Nailing COMPARISON: Pelvis radiographs 11/26/2017. TECHNIQUE: Intraoperative images of the left hip nailing as well as intraoperative left hip radiographs. Reported fluoroscopy time: 29 seconds. 4 images. FINDINGS: Intertrochanteric fracture now status post medullary nail with partially threaded cannulated femoral neck screw and proximal interlocking screw visualized. No new fracture is identified. IMPRESSION: ORIF left intertrochanteric fracture. RADIA
[2017-11-28] MEDS ORDERED: MORPHINE 2 MG/ML SYRINGE IVP PRN (14:52)
[2017-11-28] MEDS ORDERED: ACETAMINOPHEN 1,000 MG/100 ML 100 ML IV PRN (14:52)
[2017-11-28] MEDS ORDERED: oxyCODONE 5 MG TABLET PO PRN (14:52)
[2017-11-28] MEDS ORDERED: SODIUM CHLORIDE FLUSH 0.9% 10 ML SYRINGE IVP PRN (14:52)
[2017-11-28] MEDS ORDERED: PROCHLORPERAZINE 10 MG/2 ML VIAL IVP PRN (14:52)
[2017-11-28] MEDS ORDERED: ACETAMINOPHEN 325 MG TABLET PO PRN (14:52)
[2017-11-28] MEDS ORDERED: fentaNYL 100 MCG/2 ML VIAL ONE (15:00)
[2017-11-28] MEDS ORDERED: SODIUM CHLORIDE FLUSH 0.9% 10 ML SYRINGE IVP SCH (17:00)
--- NOTE | 2017-11-28 17:14 | OPERATIVE REPORT ---
DATE OF SERVICE: 11/28/2017 Physician: Neo Fleming MD PREOPERATIVE DIAGNOSIS: Closed left intertrochanteric hip fracture. POSTOPERATIVE DIAGNOSIS: Closed left intertrochanteric hip fracture. PROCEDURE PERFORMED: Closed reduction and short Intertan nailing of left hip fracture. SURGEON: Neo Fleming M.D. ANESTHESIA: General. DESCRIPTION OF PROCEDURE: The patient was taken to the operating room on 11/28/2017 [address] was [address] aced under general anesthetic without any complications. She was then positioned supine on the fract ure table. The left fractured extremity was placed in the longitudinal traction with the leg interna lly rotated approximately 30 degrees. The right unfractured extremity was then flexed and abducted a t the hip and held in a well leg nelson. Fluoroscopic views in AP and lateral projection prior to pr epping the patient were then obtained. This showed a good reduction of the fracture with the fractur e out to length. We then prepped and draped the lateral aspect of the left hip in the usual fashion for our procedure. Through an oblique skin incision proximal to the tip of the greater trochanter, we dissected down to the tip of the greater trochanter through a small incision. This is where we placed the tip of the t hreaded guidewire from the Intertan nail set. Fluoroscopic view confirmed the location of the tip of our guide pin at the tip of the greater trochanter. We then advanced this guide pin with power down to the level of the subtrochanteric level. Fluoroscopic view in AP and lateral projection confirmed the location of our guide pin and the depth. Satisfied with this, we then proceeded to ream the pro ximal femur with a 16 mm channel reamer over our inserted guide pin. The reamer and guide pin were t hen removed from the proximal femur. We then selected a short Intertan nail that was 10 mm in diamet er, 18 cm in length and 125 degree angle proximally. This was placed on our insertion and alignment guide. We then hammered the nail in place. This was confirmed with fluoroscopic views. Once the na il was advanced enough, we then proceeded to make a small skin incision and insert the oblique drill sleeve to the distal end of our alignment guide. This guide was advanced to the lateral proximal fem oral shaft. The pin guide was then inserted into this sleeve. This was then followed by our threade d tip guidewire, which was driven by power through the proximal femur, femoral neck and up into the f emoral head within about 3 mm of the subchondral bone of the femoral head. This was confirmed in AP and lateral projections with the C-arm fluoroscopy. Less satisfied with the position of our guide pi n and the depth of penetration, we then removed the pin sleeve out of our sleeve and then proceeded t o ream the proximal femur with our cannulated reamer up to within a few millimeters of the subchondra l bone of the femoral head. Removing the reamer, we then proceeded to insert the selected subtrochan teric hip lag screw over our guide pin. This was advanced until we were within about 2-3 mm of subch ondral bone in both AP and lateral projections. We then used the compression knob on our apparatus t o compress the fracture. We were able to get improved compression of our fracture fragments using th is device. We then locked the proximal end of our femoral nail set screw, tightening it and then jaquelin roldan off 90 degrees per the instruction manual. Removing the drill sleeve out of the distal end of o ur alignment jig, we then proceeded to insert the concentric silver and gold drill sleeves in the dis abhishek static hole in the distal end of our alignment guide. This was then advanced through a small ski n incision to the lateral femoral cortex. We then used our drill to perforate the medial and lateral femoral shaft cortex through our drill sleeves. Measuring the measurement off of our drill sleeve, we determined a 32.5 mm, 5 mm diameter distal locking screw will be utilized. Removing the drill and the silver sleeve, we then proceeded to insert the selected distal locking screw through the gold sl eeve. We got bicortical purchase which was confirmed fluoroscopically. AP and lateral projections o f the tip of our nail showed the distal locking screw to be in the nail in both projections. [facility] in both the AP and lateral projections of the entire nail showing the po sition of the hardware and showing good reduction of our hip fracture. We then irrigated the wounds out thoroughly with saline. We then closed the wound in layers. The proximal wound was closed with 1 simple stitch of 0 Vicryl to approximate the fascia aure layer, followed by buried simple stitches of 2-0 Vicryl to close the subcutaneous tissues. The middle incision was also closed using buried si mple stitches of 2-0 Vicryl. Finally, skin ann were used to approximate the skin edges of all th e wounds. We then dressed the wounds. Prior to the dressing of the wound, we did inject approximate ly 20 mL of 0.5% Marcaine with epinephrine to provide local incisional anesthesia postoperatively. T he patient was then transferred off of her fracture table onto her bed and taken to the recovery room in satisfactory condition. ESTIMATED BLOOD LOSS: 150 mL. REPLACEMENT: 800 mL crystalloid. INTRAOPERATIVE COMPLICATIONS: None. PLAN: Patient may be weightbearing as tolerated on this extremity. TD: 11/28/2017 15:19
[2017-11-28] MEDS: SENNA 8.6 MG TABLET PO SCH (17:58)
[2017-11-28] MEDS: ASPIRIN 325 MG TABLET PO SCH (17:58)
[2017-11-28] MEDS: DOCUSATE SODIUM 250 MG CAPSULE PO SCH (17:58)
[2017-11-28] MEDS: MORPHINE 2 MG/ML SYRINGE IVP PRN (17:59)
[2017-11-28] MEDS ORDERED: MAGNESIUM HYDROXIDE 2,400 MG/30 ML UDC PO ONE (18:00)
[2017-11-28] MEDS: ceFAZolin 2 GM/50 ML 2 GM/50 ML BAG IV SCH (19:52)
[2017-11-28] MEDS: oxyCODONE 5 MG TABLET PO PRN (21:53)
[2017-11-28] MEDS: ACETAMINOPHEN 325 MG TABLET PO PRN (21:53)
[2017-11-29] MEDS: SODIUM CHLORIDE 0.9% 1,000 ML IV SCH (02:11)
[2017-11-29] MEDS: ceFAZolin 2 GM/50 ML 2 GM/50 ML BAG IV SCH (04:07)
[2017-11-29 05:58] LABS: BASOPHILS % (AUTO) 0.7 %; EOSINOPHILS # (AUTO) 0.1 10^3/uL (0.0-0.7); EOSINOPHILS % (AUTO) 1.4 %; HGB - HEMOGLOBIN 10.6 g/dL (12.0-16.0); LYMPHOCYTES # (AUTO) 0.9 10^3/uL (1.5-3.5); LYMPHOCYTES % (AUTO) 14.7 %; MEAN CORPUSCULAR HEMOGLOBIN 31.1 pg (27.0-31.0); MEAN CORPUSCULAR HGB CONC 34.6 g/dL (32.0-36.0); MEAN PLATELET VOLUME 7.6 fL (7.9-10.8); MONOCYTES # (AUTO) 0.6 10^3/uL (0.0-1.0); MONOCYTES % (AUTO) 10.6 %; NEUTROPHILS # (AUTO) 4.3 10^3/uL (1.5-6.6); NEUTROPHILS % (AUTO) 72.6 %; PLT - PLATELET COUNT 124 10^3/uL (130-450); RED CELL DISTRIBUTION WIDTH 13.1 % (12.0-15.0)
[2017-11-29 06:12] LABS: ALBUMIN 2.3 g/dL (3.2-5.5); ALBUMIN/GLOBULIN RATIO 0.9 (1.0-2.2); CALCIUM 7.3 mg/dL (8.5-10.3); CREATININE 0.6 mg/dL (0.4-1.0); MAGNESIUM 1.8 mg/dL (1.7-2.8); PHOSPHORUS 2.8 mg/dL (2.5-4.6); TOTAL PROTEIN 4.8 g/dL (6.7-8.2)
[2017-11-29] MEDS ORDERED: POTASSIUM CHLORIDE 20 MEQ TABLET PO ONE (08:03)
[2017-11-29] MEDS: DOCUSATE SODIUM 100 MG CAPSULE PO PRN ×2 (08:30→16:59)
[2017-11-29] MEDS: ASPIRIN 325 MG TABLET PO SCH ×2 (08:30→16:59)
[2017-11-29] MEDS: FAMOTIDINE 20 MG TABLET PO SCH (08:30)
[2017-11-29] MEDS: LISINOPRIL 20 MG TABLET PO SCH (08:30)
[2017-11-29] MEDS: SOTALOL 80 MG TABLET PO SCH ×2 (08:30→20:39)
[2017-11-29] MEDS: diltiaZEM CD 180 MG CAPSULE PO SCH (08:30)
[2017-11-29] MEDS: SENNA 8.6 MG TABLET PO SCH ×3 (08:30→22:20)
[2017-11-29] MEDS: NS W/20 MEQ KCL 1,000 ML IV SCH ×2 (08:31→20:39)
[2017-11-29] MEDS: DOCUSATE SODIUM 250 MG CAPSULE PO SCH (08:31)
[2017-11-29] MEDS: POLYETHYLENE GLYCOL 3350 17 GM PACKET PO SCH (08:31)
[2017-11-29] MEDS: FLUTICASONE NASAL SPRAY NAS SCH (08:32)
[2017-11-29] MEDS: INSULIN ASPART 300 UNIT/3 ML PEN SUBQ SCH ×4 (08:32→20:45)
[2017-11-29] MEDS: SODIUM CHLORIDE FLUSH 0.9% 10 ML SYRINGE IVP SCH ×2 (08:33→17:04)
[2017-11-29] MEDS: ACETAMINOPHEN 325 MG TABLET PO PRN (08:49)
[2017-11-29] MEDS: oxyCODONE 5 MG TABLET PO PRN ×3 (08:49→20:38)
--- NOTE | 2017-11-29 08:54 | PROVIDER PROGRESS NOTE ---
Assessment/Plan - Problem List (1) Intertrochanteric fracture of left hip Qualifiers: Encounter type: initial encounter Fracture type: closed Fracture alignment: nondisplaced Qualified Code(s): S72.145A - Nondisplaced intertrochanteric fracture of left femur, initial encounter for closed fracture Assessment/Plan: Patient presented to ER after what is assumed to have been a mechanical fall at [facility]. The patient could not provide any details secondary to her dementia and poor short term memory. She was in pain on presentation and had shortened and externally rotated left leg. The patient x ray of her left hip revealed a intertrochanteric fracture of the left hip. Post operative day# 1 s/p Closed reduction and short interTan nailing of left hip fracture Xarelto was held for surgery and will be restarted today Patients pain is controlled Patient to start PT today Social work to work on placement in 1-2 days MOnitor Hb dropping slowly (2) Atrial fibrillation Conclusion/Plan: On xarelto for anticoagulation. Rate controlled with sotolol and diltiazem. 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 use Diabetes mellitus complication status: with hyperglycemia Qualified Code(s): E11.65 - Type 2 diabetes mellitus with hyperglycemia (4) Hypertension Conclusion/Plan: BP stable Continued home meds Monitor BP Pain control Qualifiers: Hypertension type: essential hypertension Qualified Code(s): I10 - Essential (primary) hypertension (5) History of coronary artery disease Conclusion/Plan: Patient has history of CAD with stent No chest pain or shortness of breath currently Echo is normal Stable - Current Meds Current Meds: Current Medications Generic Name Dose Route Start Last Admin Trade Name Freq PRN Reason Stop Dose Admin Acetaminophen 650 mg 11/26/17 08:03 11/29/17 08:49 Tylenol PO 650 mg Q4HR PRN Administration Pain 1 to 4 Aspirin 325 mg 11/28/17 17:00 11/29/17 08:30 Bienvenido PO 325 mg BIDWM DEANNA Administration Diltiazem HCl 180 mg 11/27/17 09:00 11/29/17 08:30 Cardizem Cd PO 180 mg DAILY DEANNA Administration Docusate Sodium 250 - 500 mg 11/28/17 17:58 11/29/17 08:31 Colace 250mg Capsule PO Not Given DAILY DEANNA Docusate Sodium 100 mg 11/28/17 14:52 11/29/17 08:30 Colace 100mg Capsule PO 100 mg BID PRN Administration Constipation Famotidine 20 mg 11/26/17 09:00 11/29/17 08:30 Pepcid PO 20 mg DAILY DEANNA Administration Fluticasone Propionate 2 sprays 11/27/17 09:00 11/29/17 08:32 Flonase KENDRA Not Given DAILY [facility] Acetaminophen 100 mls @ 400 mls/hr 11/28/17 14:52 11/28/17 16:10 Ofirmev IV Infused Q6HR PRN Infusion PAIN Potassium Chloride/Sodium Chloride 1,000 mls @ 83.333 mls/hr 11/29/17 09:00 11/29/17 08:31 Normal Saline 0.9% W/20 Meq Kcl IV 83.333 mls/hr .Q12H DEANNA Administration Insulin Aspart 1 - 5 unit 11/26/17 12:00 11/29/17 08:32 Novolog SUBQ Not Given 0800,1200,1700,2100 [facility] Protocol Lisinopril 20 mg 11/27/17 09:00 11/29/17 08:30 Zestril PO 20 mg DAILY DEANNA Administration Morphine Sulfate 2 mg 11/26/17 08:03 11/28/17 17:59 Morphine IVP 2 mg Q2H PRN Administration Pain 8 to 10 Oxycodone HCl 5 mg 11/26/17 08:03 11/28/17 21:53 Roxicodone PO 5 mg Q4HR PRN Administration Pain 5 to 7 Oxycodone HCl 10 mg 11/26/17 08:03 11/29/17 08:49 Roxicodone PO 10 mg Q4HR PRN Administration Pain 8 to 10 Polyethylene Glycol 17 gm 11/26/17 09:00 11/29/17 08:31 Miralax PO 17 gm DAILY DEANNA Administration Senna 8.6 - 17.2 mg 11/28/17 17:58 11/29/17 08:30 Senokot PO 8.6 mg DAILY DEANNA Administration Sodium Chloride 10 ml 11/26/17 09:00 11/29/17 08:33 Normal Saline Flush 0.9% IVP Not Given 0100,0900,1700 DEANNA Sotalol HCl 80 mg 11/28/17 17:40 11/29/17 08:30 Betapace PO 80 mg BID DEANNA Administration - Lab Result Lab results reviewed: Yes Fish Bone Diagrams: 11/29/17 05:30 11/29/17 05:30 - Diagnostic Imaging Results Diagnostic Imaging Results: Final report reviewed - Additional Planning Condition/Complexity: Stable My Orders: My Active Orders 11/28/17 17:40 Sotalol [Betapace] 80 mg PO BID 11/28/17 17:58 Docusate Sodium 250Mg Capsule [Colace 250Mg Capsule] 250 - 500 mg PO DAILY Senna [Senokot] 8.6 - 17.2 mg PO DAILY 11/29/17 09:00 Ns W/20 Meq KCl [Normal Saline 0.9% W/20 Meq KCl] 1,000 ml IV 83.333 mls/hr 11/29/17 Breakfast Carb-controlled Diet [DIET] Consult/Specialty: PT, Other (Ortho) Plan Discussed with:: Patient Time Spent: 31-60 minutes Subjective - Subjective Patient Reports: Other (Patient has dementia and does ask a lot of questions. She denies any pain but is worried about falling when she gets up and worried about pain when she gets up.) Nursing Reports: Confused Objective Vital Signs: Vital Signs - 24 hr 11/28/17 11/28/17 11/28/17 14:30 14:35 14:40 Temperature 36.5 C Heart Rate [ Brachial] Respiratory 17 17 19 Rate Blood Pressure 167/81 H 171/79 H 153/73 H Blood Pressure [Left Brachial artery] O2 Saturation 100 100 100 11/28/17 11/28/17 11/28/17 14:45 14:50 15:05 Temperature 36.4 C L Heart Rate [ Brachial] Respiratory 17 17 13 Rate Blood Pressure 152/77 H 143/82 H 151/80 H Blood Pressure [Left Brachial artery] O2 Saturation 100 96 89 L 11/28/17 11/28/17 11/28/17 15:15 16:00 17:00 Temperature 36.4 C L 36.4 C L Heart Rate [ 61 57 L Brachial] Respiratory 15 16 16 Rate Blood Pressure 150/62 H Blood Pressure 155/58 H 143/54 H [Left Brachial artery] O2 Saturation 98 95 95 11/28/17 11/28/17 11/28/17 18:04 20:54 23:39 Temperature 36.2 C L 36.5 C 36.5 C Heart Rate [ 77 57 L 60 Brachial] Respiratory 20 16 18 Rate Blood Pressure Blood Pressure 150/57 H 138/58 H 144/59 H [Left Brachial artery] O2 Saturation 94 96 96 11/29/17 11/29/17 06:00 07:28 Temperature 36.4 C L 36.6 C Heart Rate [ 84 69 Brachial] Respiratory 18 18 Rate Blood Pressure Blood Pressure 156/67 H 148/60 H [Left Brachial artery] O2 Saturation 95 95 Oxygen O2 Source Room air I&O (Last 24 Hrs): Intake and Output Totals x24h 11/27/17 11/28/17 11/29/17 23:59 23:59 23:59 Intake Total 3630.000 2842.913 901.666 Output Total 0 3100 825 Balance 1580.000 -257.087 76.666 General: Alert, Cooperative, No acute distress, Other (Oriented x1) HEENT: Atraumatic, PERRLA, EOMI, Mucous membr. moist/pink Neck: Supple, No JVD, No thyromegaly, +2 carotid pulse wo bruit, No LAD Lymphatic: no adenopathy Neuro: Alert, Disoriented, Non Focal, CN 2-12 Grossly Intact Cardiovascular: No murmurs, Other (Irregular) Respiratory: Chest non-tender, No respiratory distress, Breath sounds nml Abdomen: Normal bowel sounds, Soft, No tenderness, No hepatospenomegaly Extremities: No clubbing, No cyanosis, No edema, Normal pulses, Other (Left hip is swollen but surgical site looks clean and does not appear infected) Skin: No rashes, No breakdown - Results Results: Laboratory Results WBC 6.0 x10^3/uL (4.8-10.8) 11/29/17 05:30 RBC 3.40 10^6/uL (4.20-5.40) L 11/29/17 05:30 Hgb 10.6 g/dL (12.0-16.0) L 11/29/17 05:30 Hct 30.6 % (37.0-47.0) L 11/29/17 05:30 MCV 90.0 fL (81.0-99.0) 11/29/17 05:30 MCH 31.1 pg (27.0-31.0) H 11/29/17 05:30 MCHC 34.6 g/dL (32.0-36.0) 11/29/17 05:30 RDW 13.1 % (12.0-15.0) 11/29/17 05:30 Plt Count 124 10^3/uL (130-450) L 11/29/17 05:30 MPV 7.6 fL (7.9-10.8) L 11/29/17 05:30 Neut # (Auto) 4.3 10^3/uL (1.5-6.6) 11/29/17 05:30 Lymph # (Auto) 0.9 10^3/uL (1.5-3.5) L 11/29/17 05:30 [place] # (Auto) 0.6 10^3/uL (0.0-1.0) 11/29/17 05:30 Eos # (Auto) 0.1 10^3/uL (0.0-0.7) 11/29/17 05:30 Baso # (Auto) 0.0 10^3/uL (0.0-0.1) 11/29/17 05:30 Absolute Nucleated RBC 0.00 x10^3/uL 11/29/17 05:30 Nucleated RBC % 0.0 /100WBC 11/29/17 05:30 PT 12.9 secs (9.9-12.6) H 11/27/17 05:10 INR 1.1 (0.8-1.2) 11/27/17 05:10 APTT 29.9 secs (24.9-33.3) 11/26/17 06:10 Sodium 138 mmol/L (135-145) 11/29/17 05:30 Potassium 2.7 mmol/L (3.5-5.0) L 11/29/17 05:30 Chloride 102 mmol/L (101-111) 11/29/17 05:30 Carbon Dioxide 27 mmol/L (21-32) 11/29/17 05:30 Anion Gap 9.0 (6-13) 11/29/17 05:30 BUN 10 mg/dL (6-20) 11/29/17 05:30 Creatinine 0.6 mg/dL (0.4-1.0) 11/29/17 05:30 Estimated GFR (MDRD) 95 (>89) 11/29/17 05:30 Glucose 147 mg/dL (70-100) H 11/29/17 05:30 POC Whole Bld Glucose 142 mg/dL (70 - 100) H 11/29/17 07:16 Glycated Hemoglobin 6.8 % (4.6-6.2) H 11/27/17 05:10 Estim Average Glucose 148 (70-100) H 11/27/17 05:10 Calcium 7.3 mg/dL (8.5-10.3) L 11/29/17 05:30 Phosphorus 2.8 mg/dL (2.5-4.6) 11/29/17 05:30 Magnesium 1.8 mg/dL (1.7-2.8) 11/29/17 05:30 Total Bilirubin 1.0 mg/dL (0.2-1.0) 11/29/17 05:30 AST 20 IU/L (10-42) 11/29/17 05:30 ALT 12 IU/L (10-60) 11/29/17 05:30 Alkaline Phosphatase 49 IU/L (42-121) 11/29/17 05:30 Total Protein 4.8 g/dL (6.7-8.2) L 11/29/17 05:30 Albumin 2.3 g/dL (3.2-5.5) L 11/29/17 05:30 Globulin 2.5 g/dL (2.1-4.2) 11/29/17 05:30 Albumin/Globulin Ratio 0.9 (1.0-2.2) L 11/29/17 05:30 Urine Color LIGHT YELLOW 11/26/17 06:10 Urine Clarity CLEAR (CLEAR) 11/26/17 06:10 Urine pH 7.5 PH (5.0-7.5) 11/26/17 06:10 Ur Specific [place] 1.010 (1.002-1.030) 11/26/17 06:10 Urine Protein NEGATIVE mg/dL (NEGATIVE) 11/26/17 06:10 Urine Glucose (UA) NEGATIVE mg/dL (NEGATIVE) 11/26/17 06:10 Urine Ketones NEGATIVE mg/dL (NEGATIVE) 11/26/17 06:10 Urine Occult Blood NEGATIVE (NEGATIVE) 11/26/17 06:10 Urine Nitrite NEGATIVE (NEGATIVE) 11/26/17 06:10 Urine Bilirubin NEGATIVE (NEGATIVE) 11/26/17 06:10 Urine Urobilinogen 0.2 (NORMAL) E.U./dL (NORMAL) 11/26/17 06:10 Ur Leukocyte Esterase NEGATIVE (NEGATIVE) 11/26/17 06:10 Ur Microscopic Review NOT INDICATED 11/26/17 06:10 Urine Culture Comments NOT INDICATED 11/26/17 06:10 Blood Type A POSITIVE 11/28/17 08:35 Blood Type Recheck A POSITIVE 11/28/17 04:45 Antibody Screen NEGATIVE 11/28/17 08:35 Crossmatch IS Only See Detail 11/28/17 08:35 ABX Reporting Has patient been on IV antibiotics over the past 48 hours?: No Current Medications - Current Medications Current Medications: Active Medications Generic Name Dose Route Start Last Admin Trade Name Freq PRN Reason Stop Dose Admin Acetaminophen 650 mg 11/26/17 08:03 11/29/17 08:49 Tylenol PO 650 mg Q4HR PRN Administration Pain 1 to 4 Acetaminophen 650 - 975 mg 11/28/17 14:52 Tylenol PO Q4HR PRN PAIN Aspirin 325 mg 11/28/17 17:00 11/29/17 08:30 Bienvenido PO 325 mg BIDWM DEANNA Administration Diltiazem HCl 180 mg 11/27/17 09:00 11/29/17 08:30 Cardizem Cd PO 180 mg DAILY DEANNA Administration Docusate Sodium 250 - 500 mg 11/28/17 17:58 11/29/17 08:31 Colace 250mg Capsule PO Not Given DAILY DEANNA Docusate Sodium 100 mg 11/28/17 14:52 11/29/17 08:30 Colace 100mg Capsule PO 100 mg BID PRN Administration Constipation Famotidine 20 mg 11/26/17 09:00 11/29/17 08:30 Pepcid PO 20 mg DAILY DEANNA Administration Fluticasone Propionate 2 sprays 11/27/17 09:00 11/29/17 08:32 Flonase KENDRA Not Given DAILY [facility] Acetaminophen 100 mls @ 400 mls/hr 11/28/17 14:52 11/28/17 16:10 Ofirmev IV Infused Q6HR PRN Infusion PAIN Potassium Chloride/Sodium Chloride 1,000 mls @ 83.333 mls/hr 11/29/17 09:00 11/29/17 08:31 Normal Saline 0.9% W/20 Meq Kcl IV 83.333 mls/hr .Q12H DEANNA Administration Insulin Aspart 1 - 5 unit 11/26/17 12:00 11/29/17 08:32 Novolog SUBQ Not Given 0800,1200,1700,2100 [facility] Protocol Lisinopril 20 mg 11/27/17 09:00 11/29/17 08:30 Zestril PO 20 mg DAILY [facility] Administration Morphine Sulfate 2 mg 11/26/17 08:03 11/28/17 17:59 Morphine IVP 2 mg Q2H PRN Administration Pain 8 to 10 Non-Formulary Medication 20 mg 11/29/17 09:00 Rivaroxaban [Xarelto] PO QDBREAKFAST [facility] Ondansetron HCl 4 mg 11/26/17 08:03 Zofran Inj IVP Q6HR PRN Nausea / Vomiting Oxycodone HCl 5 mg 11/26/17 08:03 11/28/17 21:53 Roxicodone PO 5 mg Q4HR PRN Administration Pain 5 to 7 Oxycodone HCl 10 mg 11/26/17 08:03 11/29/17 08:49 Roxicodone PO 10 mg Q4HR PRN Administration Pain 8 to 10 Polyethylene Glycol 17 gm 11/26/17 09:00 11/29/17 08:31 Miralax PO 17 gm DAILY [facility] Administration Prochlorperazine Edisylate 10 mg 11/26/17 08:03 Compazine Inj IVP Q6HR PRN Nausea / Vomiting Promethazine HCl 25 mg 11/26/17 08:03 Phenergan Inj IM Q6HR PRN Nausea / Vomiting Senna 8.6 - 17.2 mg 11/28/17 17:58 11/29/17 08:30 Senokot PO 8.6 mg DAILY [facility] Administration Sodium Chloride 10 ml 11/26/17 08:03 Normal Saline Flush 0.9% IVP PRN PRN NEEDED PER PROVIDER ORDERS Sodium Chloride 10 ml 11/26/17 09:00 11/29/17 08:33 Normal Saline Flush 0.9% IVP Not Given 0100,0900,1700 DEANNA Sotalol HCl 80 mg 11/28/17 17:40 11/29/17 08:30 Betapace PO 80 mg BID DEANNA Administration Zolpidem Tartrate 5 mg 11/26/17 08:03 Ambien PO QPM PRN Insomnia Sotalol [Betapace] 80 mg ORAL BID 04/06/13 metFORMIN [Glucophage] 250 mg PO QDBREAKFAST 02/23/14 Lisinopril 20 mg PO DAILY 01/19/15 Acetaminophen 2 tab PO Q6HR PRN 11/26/17 Fluticasone [Flonase] 2 sprays KENDRA DAILY 11/26/17 Loperamide [Imodium] 2 mg PO DAILY PRN 11/26/17 Rivaroxaban [Xarelto] 20 mg PO QDBREAKFAST 11/26/17 diltiaZEM CD [Cardizem Cd] 180 mg PO DAILY 11/26/17
[2017-11-29] MEDS: RIVAROXABAN 10 MG TABLET PO SCH (11:07)
--- NOTE | 2017-11-29 14:12 | PROVIDER PROGRESS NOTE ---
Subjective - Prog Note Date Prog Note Date: 11/29/17 Prog Note Time: 14:09 - Subjective Pt reports feeling: Improved Objective - Vital Signs/Intake & Output Vital Signs: Vital Signs x48h Temp Pulse Resp BP Pulse Ox 11/29/17 07:28 36.6 C 69 18 148/60 H 95 Intake & Output: Intake & Output 11/26/17 11/27/17 11/28/17 11/29/17 23:59 23:59 23:59 23:59 Intake Total 2120 3630.000 2842.913 1054.333 Output Total 2675 2050 3100 1425 Balance -555 1580.000 -257.087 -370.667 - Lab Results Fish Bones: 11/29/17 05:30 11/29/17 05:30 Other Labs: Lab Results x24hrs 11/29/17 11/29/17 11/29/17 Range/Units 11:24 07:16 05:30 WBC (4.8-10.8) x10^3/uL RBC (4.20-5.40) 10^6/uL Hgb (12.0-16.0) g/dL Hct (37.0-47.0) % MCV (81.0-99.0) fL MCH (27.0-31.0) pg MCHC (32.0-36.0) g/dL RDW (12.0-15.0) % Plt Count (130-450) 10^3/uL MPV (7.9-10.8) fL Neut # (Auto) (1.5-6.6) 10^3/uL Lymph # (Auto) (1.5-3.5) 10^3/uL Nelson # (Auto) (0.0-1.0) 10^3/uL Eos # (Auto) (0.0-0.7) 10^3/uL Baso # (Auto) (0.0-0.1) 10^3/uL Absolute Nucleated RBC x10^3/uL Nucleated RBC % /100WBC Sodium 138 (135-145) mmol/L Potassium 2.7 L (3.5-5.0) mmol/L Chloride 102 (101-111) mmol/L Carbon Dioxide 27 (21-32) mmol/L Anion Gap 9.0 (6-13) BUN 10 (6-20) mg/dL Creatinine 0.6 (0.4-1.0) mg/dL Estimated GFR (MDRD) 95 (>89) Glucose 147 H (70-100) mg/dL POC Whole Bld Glucose 178 H 142 H (70 - 100) mg/dL Calcium 7.3 L (8.5-10.3) mg/dL Phosphorus 2.8 (2.5-4.6) mg/dL Magnesium 1.8 (1.7-2.8) mg/dL Total Bilirubin 1.0 (0.2-1.0) mg/dL AST 20 (10-42) IU/L ALT 12 (10-60) IU/L Alkaline Phosphatase 49 (42-121) IU/L Total Protein 4.8 L (6.7-8.2) g/dL Albumin 2.3 L (3.2-5.5) g/dL Globulin 2.5 (2.1-4.2) g/dL Albumin/Globulin Ratio 0.9 L (1.0-2.2) 11/29/17 11/28/17 11/28/17 Range/Units 05:30 20:49 16:44 WBC 6.0 (4.8-10.8) x10^3/uL RBC 3.40 L (4.20-5.40) 10^6/uL Hgb 10.6 L (12.0-16.0) g/dL Hct 30.6 L (37.0-47.0) % MCV 90.0 (81.0-99.0) fL MCH 31.1 H (27.0-31.0) pg MCHC 34.6 (32.0-36.0) g/dL RDW 13.1 (12.0-15.0) % Plt Count 124 L (130-450) 10^3/uL MPV 7.6 L (7.9-10.8) fL Neut # (Auto) 4.3 (1.5-6.6) 10^3/uL Lymph # (Auto) 0.9 L (1.5-3.5) 10^3/uL Nelson # (Auto) 0.6 (0.0-1.0) 10^3/uL Eos # (Auto) 0.1 (0.0-0.7) 10^3/uL Baso # (Auto) 0.0 (0.0-0.1) 10^3/uL Absolute Nucleated RBC 0.00 x10^3/uL Nucleated RBC % 0.0 /100WBC Sodium (135-145) mmol/L Potassium (3.5-5.0) mmol/L Chloride (101-111) mmol/L Carbon Dioxide (21-32) mmol/L Anion Gap (6-13) BUN (6-20) mg/dL Creatinine (0.4-1.0) mg/dL Estimated GFR (MDRD) (>89) Glucose (70-100) mg/dL POC Whole Bld Glucose 177 H 158 H (70 - 100) mg/dL Calcium (8.5-10.3) mg/dL Phosphorus (2.5-4.6) mg/dL Magnesium (1.7-2.8) mg/dL Total Bilirubin (0.2-1.0) mg/dL AST (10-42) IU/L ALT (10-60) IU/L Alkaline Phosphatase (42-121) IU/L Total Protein (6.7-8.2) g/dL Albumin (3.2-5.5) g/dL Globulin (2.1-4.2) g/dL Albumin/Globulin Ratio (1.0-2.2) - Other Results/Comments Other Results/Comments: EXAM: Dressing intact. Mild pain with hip motion. Moves toes well. Sensation intact. Good cap filling. UP in chair without problem Assessment/Plan - Problem List (1) Hip fracture Impression: Satis post op PLAN: Mobilize as tolerated. When she goes to SNF< continue PT - WBAT on left. RTC in 2 weeks for ann out and new XR. Qualifiers: Encounter type: initial encounter Fracture type: closed Laterality: left Qualified Code(s): S72.002A - Fracture of unspecified part of neck of left femur, initial encounter for closed fracture
[2017-11-29] MEDS ORDERED: MAGNESIUM CITRATE 296 ML BOTTLE PO ONE (16:32)
[2017-11-30] MEDS: SODIUM CHLORIDE FLUSH 0.9% 10 ML SYRINGE IVP SCH ×2 (00:08→08:49)
[2017-11-30] MEDS: oxyCODONE 5 MG TABLET PO PRN ×3 (02:09→14:00)
[2017-11-30] MEDS: SENNA 8.6 MG TABLET PO SCH ×3 (05:02→08:49)
[2017-11-30 05:07] LABS: BASOPHILS % (AUTO) 0.5 %; EOSINOPHILS # (AUTO) 0.1 10^3/uL (0.0-0.7); HGB - HEMOGLOBIN 10.4 g/dL (12.0-16.0); LYMPHOCYTES # (AUTO) 0.9 10^3/uL (1.5-3.5); LYMPHOCYTES % (AUTO) 9.2 %; MEAN CORPUSCULAR HEMOGLOBIN 31.3 pg (27.0-31.0); MEAN CORPUSCULAR HGB CONC 34.7 g/dL (32.0-36.0); MEAN CORPUSCULAR VOLUME 90.2 fL (81.0-99.0); MEAN PLATELET VOLUME 7.4 fL (7.9-10.8); MONOCYTES % (AUTO) 10.5 %; NEUTROPHILS # (AUTO) 7.4 10^3/uL (1.5-6.6); NEUTROPHILS % (AUTO) 78.8 %; PLT - PLATELET COUNT 183 10^3/uL (130-450); RED BLOOD COUNT 3.32 10^6/uL (4.20-5.40); RED CELL DISTRIBUTION WIDTH 13.5 % (12.0-15.0); WHITE BLOOD COUNT 9.4 x10^3/uL (4.8-10.8)
[2017-11-30 05:18] LABS: ALBUMIN 2.7 g/dL (3.2-5.5); BILIRUBIN,TOTAL 1.3 mg/dL (0.2-1.0); CALCIUM 7.6 mg/dL (8.5-10.3); CREATININE 0.5 mg/dL (0.4-1.0); MAGNESIUM 2.1 mg/dL (1.7-2.8); PHOSPHORUS 1.8 mg/dL (2.5-4.6); TOTAL PROTEIN 5.4 g/dL (6.7-8.2)
[2017-11-30] MEDS ORDERED: POTASSIUM CHLORIDE 20 MEQ TABLET PO ONE (07:54)
[2017-11-30] MEDS: DOCUSATE SODIUM 250 MG CAPSULE PO SCH (07:57)
[2017-11-30] MEDS: POLYETHYLENE GLYCOL 3350 17 GM PACKET PO SCH (07:57)
[2017-11-30 08:03] VITALS: BP 175/79
[2017-11-30] MEDS: NEUTRA-PHOS 250 MG TABLET PO SCH ×2 (08:48→13:11)
[2017-11-30] MEDS: RIVAROXABAN 10 MG TABLET PO SCH (08:48)
[2017-11-30] MEDS: SOTALOL 80 MG TABLET PO SCH (08:48)
[2017-11-30] MEDS: LISINOPRIL 20 MG TABLET PO SCH (08:48)
[2017-11-30] MEDS: FAMOTIDINE 20 MG TABLET PO SCH (08:48)
[2017-11-30] MEDS: ASPIRIN 325 MG TABLET PO SCH (08:48)
[2017-11-30] MEDS: diltiaZEM CD 180 MG CAPSULE PO SCH (08:49)
[2017-11-30] MEDS: FLUTICASONE NASAL SPRAY NAS SCH (08:49)
[2017-11-30] MEDS: INSULIN ASPART 300 UNIT/3 ML PEN SUBQ SCH ×2 (08:52→13:11)
--- NOTE | 2017-11-30 09:06 | Discharge Plan ---
"Discharge Plan for SNF / [facility] - DC Plan and Transition Orders Disposition: 03 SNF DC/Xfer Condition: Fair SNF Transition Orders: Admit to: [[facility]] under the care of [Abel Sanchez MD] Discharge Diagnosis: [ 1. Intertrochanteric fracture of left hip 2. Atrial fibrillation 3. Diabetes 4. Hypertension] Medicare Certification: I certify that [facility] senior care care is medically necessary on a continuing basis for any of the conditions for which she/he is receiving care during hospitalization. Notify PCP of admission and forward orders to primary provider for signature. Weight on admission and [Weekly]. Call PCP immediately if weight increases by [ 5] pounds or if patient develops dyspnea, chest pain/tightness or edema. House Bowel Program: Yes If no BM after 2 days, nurse may give M.O.M. 30ml PO PRN and /or ducolax Supp 1 KS and /or JAYDEN 250mg P.O., and/or senna 1-2 tabs PO. On day 3 nurse may give repeat above order until residents constipation is resolved. Immunizations: Annual Influenza Vaccine: [Yes]. (between Dec 20 and July 19.) Unless allergy or already given Two-Step PPD: [Yes] per [facility] 248-235 or appropriate documentation of approved exceptions Treatments & Other Orders: [Mobilize as tolerated. Continue physical therapy with weightbearing as tolerated on the left. Follow-up in orthopedic clinic in 2 weeks for removal of otto and x-ray of the left hip.] Oxygen Orders: [None] Lab Tests or X-Rays Orders: [Repeat x-ray of the left hip in 2 weeks prior to appointment at orthopedic clinic] Orthopedic Orders: [Otto In 2 weeks at orthopedic clinic]. Medications: PLEASE REFER TO THE DISCHARGE MEDICATION LIST. Insulin Orders? [Yes] Diagnosis: Diabetes Initiate hypo and hyperglycemia protocols for BG <70 and BG >375. May check BG prn for signs/symptoms of dysglycemia. Frequency of BG checks: [AC/Meal/HS] Basal Insulin: [None] Lantus 100 units / ml inject subq as follows: [None] [] Other: [] Correction Insulin: - Select the type of insulin below [Choose: Novolog]100 units /ml insulin inject subq per orders indicate below [x] LOW DOSE [] MODERATE DOSE [] MODERATE/HIGH DOSE [] HIGH DOSE GB UNITS GB UNITS GB UNITS GB UNITS 61-140 0 UNITS 61-140 0 UNITS 61-140 0 UNITS 61-140 0 UNITS 141-175 1 UNITS 141-175 1 UNITS 141-175 2 UNITS 141-175 3 UNITS 176-225 2 UNITS 176-225 3 UNITS 176-225 4 UNITS 176-225 5 UNITS 226-275 3 UNITS 226-275 5 UNITS 226-275 6 UNITS 226-275 7 UNITS 276-325 4 UNITS 276-325 7 UNITS 276-325 8 UNITS 276-325 9 UNITS 326-375 5 UNITS 326-375 9 UNITS 326-375 10 UNITS 326-375 11 UNITS >375 CONTACT MD >375 CONTACT MD >375 CONTACT MD >375 CONTACT MD Custom Dosing: [Choose: None] 100 units/ml Insulin inject subq as follows: GB Units 61-140 [] Units 141-175 [] Units 176-225 [] Units 226-275 [] Units 276-325 []Units 326-375 [] Units >375 Contact MD Allergies and Adverse Reactions: Allergies Allergy/AdvReac Type Severity Reaction Status Date / Time ibuprofen [From Motrin] AdvReac Intermediate Ringing in Verified 11/26/17 03:58 ears - Medications New Prescriptions: oxyCODONE [Roxicodone] 5 mg PO Q4HR PRN #24 tablet PRN Reason: Pain - Diet Type: No added sugar Texture: Regular Liquids: Thin May have monthly special meal: Yes - Therapies | Activity Therapy: Evaluation | Treat if indicated: PT, OT Rehabilitation Potential: Maximize functional status Activity: Wt Bearing as Tolerated (LLE) Weight Bearing: Other (WBAT LLE) Assistance Devices: Walker Follow Up: Patient to follow-up in orthopedic clinic in 2 weeks to have otto removed and have x-ray done of the left hip."
--- NOTE | 2017-11-30 09:19 | DISCHARGE SUMMARY ---
"Discharge Summary Admit Date: 11/26/17 Discharge Date: 11/30/17 Discharging Provider: Artem Luke MD Primary Care Provider: Naomi Scherer MD Code Status: Attempt Resuscitation Condition at Discharge: Fair Discharge Disposition: 03 SNF DC/Xfer Discharge Facility Name: [facility] - DIAGNOSES Admission Diagnoses: 1. Intertrochanteric fracture of the left hip 2. Atrial fibrillation 3. Diabetes 4. Hypertension 5. History of coronary artery disease Discharge Diagnoses with Status of Each Condition: 1. Nondisplaced intertrochanteric fracture of the left hip: Improving 2. Chronic atrial fibrillation: Stable 3. Type 2 diabetes mellitus with hyperglycemia: Stable 4. Essential hypertension: Stable 5. History of coronary disease: Stable - HPI History of Present Illness: Patient is an 87 year old femal resident of [facility] with a past medical history significant for atrial fibrillation on Xarelto, diabetes on Metformin, hypertension and dementia who presented to the emergency department with chief complaint of left hip pain. The patient is a poor historian secondary to her dementia. When asked she does not remember why she came into the hospital. When I asked her what she was doing before she came into the hospital she states that she was riding on a bicycle in a place that she should no have been. She does not know where she is currently living but could tell me her previous address. She is aware that she has pain in her left leg but was no aware why. The patient could not recall what happened before she arrived at the ER. According to records it appears that the patient was ambulating to the bathroom at home [facility] at around 3 AM when she fell on her left side. She then complained of pain in her left lower leg and could not get back up. According to the staff at [facility] she did not hit her head or lose consciousness. The patient was unable to get up so staff called 911. Aside from the pain the patient denies any other complaints. Patient denies any headache, blurred vision, runny nose, sore throat, nasal congestion, difficult, swallowing, fevers, chills, chest pain, shortness of air , orthopnea, PND, increased lower extremity swelling, cough, abdominal pain, nausea, vomiting, diarrhea, constipation, urinary symptoms, back pain, neck stiffness, changes in her appetite, recent unintentinal weight loss, neight sweats, hair loss, rash or any focal neurologic deficits. On presentation to the ER the patient was afebrile and very hypertensive. She was in moderate distress secondary to pain. She had obvious deformity of her left leg. She was taken for x ray of her hip right away and this showed that she had a intertrochanteric left hip fracture. Given that the patient was on xarelto she also had a CT head to rule out a bleed. She had no acute finding on CT head. She had routine labs and a CXR which were unimpressive. Orthopedic Surgery was called from the ER and they asked that the hospitalist team admit the patient and consult Orthopedic surgery. - CONSULTS | PROCEDURES Consultations: Orthopedic Surgery Procedures: Closed reduction and short interTan nailing of left hip fracture Mobilize as tolerated. When she goes to SNF< continue PT - WBAT on left. RTC in 2 weeks for ann out and new XR. - HOSPITAL COURSE Hospital Course: Patient was admitted for a left intertrochanteric fracture of her hip. Since she was on Xarelto the surgery was delayed for 2 days to allow the Xarelto to be metabolized out of her system. The patient underwent a closed reduction and short interTan nailing of the left hip fracture on 11/28/2017. She had an unremarkable postoperative course. She seemed to progress very well and quickly with physical therapy. She appeared well enough to be able to transition to [facility] for continued physical therapy until she is well enough to return to [facility] which is her residence. During the hospitalization we were able to adequately control her diabetes and her blood pressure. The patient did have some hypokalemia and hypo-phosphatemia which was adequately replaced and corrected prior to discharge to [facility]. The patient will follow up with orthopedic surgery and clinic in 2 weeks to have her ann removed and to have a repeat x-ray of her left hip. The patient was in stable condition at the time of discharge and should continue to do well with physical therapy. She does have moderate dementia but is very pleasant and directable. - ALLERGIES Allergies/Adverse Reactions: Allergies Allergy/AdvReac Type Severity Reaction Status Date / Time ibuprofen [From Motrin] AdvReac Intermediate Ringing in Verified 11/26/17 03:58 ears - MEDICATIONS Home Medications: Ambulatory Orders Medication Instructions Recorded Confirmed Sotalol [Betapace] 80 mg ORAL BID 04/06/13 11/26/17 Lisinopril 20 mg PO DAILY 01/19/15 11/26/17 Fluticasone [Flonase] 2 sprays KENDRA DAILY 11/26/17 11/26/17 Loperamide [Imodium] 2 mg PO DAILY PRN 11/26/17 11/26/17 Rivaroxaban [Xarelto] 20 mg PO QDBREAKFAST 11/26/17 11/26/17 diltiaZEM CD [Cardizem Cd] 180 mg PO DAILY 11/26/17 11/26/17 Acetaminophen [Tylenol] 650 mg PO Q4HR PRN tablet 11/30/17 Famotidine [Pepcid] 20 mg PO DAILY tablet 11/30/17 metFORMIN [Glucophage] 500 mg PO QDBREAKFAST #0 11/30/17 11/26/17 oxyCODONE [Roxicodone] 5 mg PO Q4HR PRN #24 tablet 11/30/17 - PHYSICAL EXAM AT DISCHARGE General Appearance: positive: No acute distress, Alert, Other (Pleasantly demented) Eyes Bilateral: positive: Normal inspection, PERRL, EOMI, No lid inflammation, Conjunctivae nml, No scleral icterus ENT: positive: ENT inspection nml, Pharynx nml, No signs of dehydration. negative: Purulent nasal drainage, Pharyngeal erythema, Oral lesions Neck: positive: Nml inspection, Thyroid nml, No JVD, Trachea midline. negative : Lymphadenopathy (R), Lymphadenopathy (L), Stiff neck, Carotid bruit, Tracheal deviation Respiratory: positive: Chest non-tender, No respiratory distress, Breath sounds nml. negative: Wheezes, Rales, Rhonchi Cardiovascular: positive: Regular rate & rhythm, No murmur, No gallop Peripheral Pulses: positive: 2+ Abdomen: positive: Non-tender, No organomegaly, Nml bowel sounds, No distention. negative: Guarding, Rebound, Hepatomegaly Back: positive: Nml inspection. negative: CVA tenderness (R), CVA tenderness (L ) Skin: positive: Color nml, No rash, Warm. negative: Diaphoresis, Pallor, Skin rash Extremities: positive: No pedal edema, Other (Left hip surgical site looks good , no signs of infection.) Neurologic/Psychiatric: positive: CN's nml (2-12), Motor nml, Sensation nml, Mood/affect nml, Disoriented to time - LABS Result Diagrams: 11/30/17 04:35 11/30/17 04:35 Other Lab Results: Laboratory Results WBC 9.4 x10^3/uL (4.8-10.8) 11/30/17 04:35 RBC 3.32 10^6/uL (4.20-5.40) L 11/30/17 04:35 Hgb 10.4 g/dL (12.0-16.0) L 11/30/17 04:35 Hct 29.9 % (37.0-47.0) L 11/30/17 04:35 MCV 90.2 fL (81.0-99.0) 11/30/17 04:35 MCH 31.3 pg (27.0-31.0) H 11/30/17 04:35 MCHC 34.7 g/dL (32.0-36.0) 11/30/17 04:35 RDW 13.5 % (12.0-15.0) 11/30/17 04:35 Plt Count 183 10^3/uL (130-450) 11/30/17 04:35 MPV 7.4 fL (7.9-10.8) L 11/30/17 04:35 Neut # (Auto) 7.4 10^3/uL (1.5-6.6) H 11/30/17 04:35 Lymph # (Auto) 0.9 10^3/uL (1.5-3.5) L 11/30/17 04:35 [place] # (Auto) 1.0 10^3/uL (0.0-1.0) 11/30/17 04:35 Eos # (Auto) 0.1 10^3/uL (0.0-0.7) 11/30/17 04:35 Baso # (Auto) 0.0 10^3/uL (0.0-0.1) 11/30/17 04:35 Absolute Nucleated RBC 0.00 x10^3/uL 11/30/17 04:35 Nucleated RBC % 0.0 /100WBC 11/30/17 04:35 PT 12.9 secs (9.9-12.6) H 11/27/17 05:10 INR 1.1 (0.8-1.2) 11/27/17 05:10 APTT 29.9 secs (24.9-33.3) 11/26/17 06:10 Sodium 136 mmol/L (135-145) 11/30/17 04:35 Potassium 2.8 mmol/L (3.5-5.0) L 11/30/17 04:35 Chloride 100 mmol/L (101-111) L 11/30/17 04:35 Carbon Dioxide 27 mmol/L (21-32) 11/30/17 04:35 Anion Gap 9.0 (6-13) 11/30/17 04:35 BUN 11 mg/dL (6-20) 11/30/17 04:35 Creatinine 0.5 mg/dL (0.4-1.0) 11/30/17 04:35 Estimated GFR (MDRD) 117 (>89) 11/30/17 04:35 Glucose 171 mg/dL (70-100) H 11/30/17 04:35 POC Whole Bld Glucose 181 mg/dL (70 - 100) H 11/30/17 07:22 Glycated Hemoglobin 6.8 % (4.6-6.2) H 11/27/17 05:10 Estim Average Glucose 148 (70-100) H 11/27/17 05:10 Calcium 7.6 mg/dL (8.5-10.3) L 11/30/17 04:35 Phosphorus 1.8 mg/dL (2.5-4.6) L 11/30/17 04:35 Magnesium 2.1 mg/dL (1.7-2.8) 11/30/17 04:35 Total Bilirubin 1.3 mg/dL (0.2-1.0) H 11/30/17 04:35 AST 30 IU/L (10-42) 11/30/17 04:35 ALT 12 IU/L (10-60) 11/30/17 04:35 Alkaline Phosphatase 63 IU/L (42-121) 11/30/17 04:35 Total Protein 5.4 g/dL (6.7-8.2) L 11/30/17 04:35 Albumin 2.7 g/dL (3.2-5.5) L 11/30/17 04:35 Globulin 2.7 g/dL (2.1-4.2) 11/30/17 04:35 Albumin/Globulin Ratio 1.0 (1.0-2.2) 11/30/17 04:35 Urine Color LIGHT YELLOW 11/26/17 06:10 Urine Clarity CLEAR (CLEAR) 11/26/17 06:10 Urine pH 7.5 PH (5.0-7.5) 11/26/17 06:10 Ur Specific [place] 1.010 (1.002-1.030) 11/26/17 06:10 Urine Protein NEGATIVE mg/dL (NEGATIVE) 11/26/17 06:10 Urine Glucose (UA) NEGATIVE mg/dL (NEGATIVE) 11/26/17 06:10 Urine Ketones NEGATIVE mg/dL (NEGATIVE) 11/26/17 06:10 Urine Occult Blood NEGATIVE (NEGATIVE) 11/26/17 06:10 Urine Nitrite NEGATIVE (NEGATIVE) 11/26/17 06:10 Urine Bilirubin NEGATIVE (NEGATIVE) 11/26/17 06:10 Urine Urobilinogen 0.2 (NORMAL) E.U./dL (NORMAL) 11/26/17 06:10 Ur Leukocyte Esterase NEGATIVE (NEGATIVE) 11/26/17 06:10 Ur Microscopic Review NOT INDICATED 11/26/17 06:10 Urine Culture Comments NOT INDICATED 11/26/17 06:10 Blood Type A POSITIVE 11/28/17 08:35 Blood Type Recheck A POSITIVE 11/28/17 04:45 Antibody Screen NEGATIVE 11/28/17 08:35 Crossmatch IS Only See Detail 11/28/17 08:35 - DIAGNOSTIC IMAGING Diagnostic Imaging Results: Final report reviewed Diagnostic Imaging Results Comments: Hip/pelvis x-ray Impression: 1. Osteopenia with intertrochanteric left hip fracture CT head Impression: Generalized age-related cortical atrophic changes without evidence of acute intracranial abnormality. No significant change from prior. Chest x-ray Impression: No radiographically apparent acute abnormality in the chest. No significant change from prior. Hip x-ray 11/28/2017 Impression: ORIF left intertrochanteric fracture Echocardiogram Conclusions 1. The left ventricular size is normal. The left ventricular wall thickness is towards the upper limit of normal to mildly increased. Overall left ventricular systolic function is normal with an ejection fraction of 60-65%. Diastolic function is indeterminate. No regional wall motion abnormalities are seen. 2. The right ventricle is normal in size and function 3. There is mild aortic regurgitation 4. There is mild mitral regurgitation. 5. Mild tricuspid regurgitation. Mildly abnormal right heart pressures. The right ventricular systolic pressure at rest is 42 mmHg. - FOLLOW UP Follow Up: Patient was hospitalized for a left intertrochanteric fracture and underwent repair of the fracture with a closed reduction and short InterTAN nailing of the left hip fracture. The patient progressed well with physical therapy and was discharged to [facility] for continued physical therapy. She will follow-up with orthopedic surgery in 2 weeks to have ann removed and for follow-up appointment. - TIME SPENT Time Spent in Discharge (Minutes): 45"
--- NOTE | 2017-11-30 09:39 | PROVIDER PROGRESS NOTE ---
Subjective - Prog Note Date Prog Note Date: 11/30/17 Prog Note Time: 09:37 - Subjective Pt reports feeling: Improved Objective - Vital Signs/Intake & Output Vital Signs: Vital Signs x48h Temp Pulse Resp BP Pulse Ox 11/30/17 08:00 36.4 C L 85 18 175/79 H 96 Intake & Output: Intake & Output 11/27/17 11/28/17 11/29/17 11/30/17 23:59 23:59 23:59 23:59 Intake Total 3630.000 2842.913 2868.773 300 Output Total 2050 3100 1850 Balance 1580.000 -959.952 3820.773 300 - Lab Results Fish Bones: 11/30/17 04:35 11/30/17 04:35 Other Labs: Lab Results x24hrs 11/30/17 11/30/17 11/30/17 Range/Units 07:22 04:35 04:35 WBC 9.4 (4.8-10.8) x10^3/uL RBC 3.32 L (4.20-5.40) 10^6/uL Hgb 10.4 L (12.0-16.0) g/dL Hct 29.9 L (37.0-47.0) % MCV 90.2 (81.0-99.0) fL MCH 31.3 H (27.0-31.0) pg MCHC 34.7 (32.0-36.0) g/dL RDW 13.5 (12.0-15.0) % Plt Count 183 (130-450) 10^3/uL MPV 7.4 L (7.9-10.8) fL Neut # (Auto) 7.4 H (1.5-6.6) 10^3/uL Lymph # (Auto) 0.9 L (1.5-3.5) 10^3/uL [place] # (Auto) 1.0 (0.0-1.0) 10^3/uL Eos # (Auto) 0.1 (0.0-0.7) 10^3/uL Baso # (Auto) 0.0 (0.0-0.1) 10^3/uL Absolute Nucleated RBC 0.00 x10^3/uL Nucleated RBC % 0.0 /100WBC Sodium 136 (135-145) mmol/L Potassium 2.8 L (3.5-5.0) mmol/L Chloride 100 L (101-111) mmol/L Carbon Dioxide 27 (21-32) mmol/L Anion Gap 9.0 (6-13) BUN 11 (6-20) mg/dL Creatinine 0.5 (0.4-1.0) mg/dL Estimated GFR (MDRD) 117 (>89) Glucose 171 H (70-100) mg/dL POC Whole Bld Glucose 181 H (70 - 100) mg/dL Calcium 7.6 L (8.5-10.3) mg/dL Phosphorus 1.8 L (2.5-4.6) mg/dL Magnesium 2.1 (1.7-2.8) mg/dL Total Bilirubin 1.3 H (0.2-1.0) mg/dL AST 30 (10-42) IU/L ALT 12 (10-60) IU/L Alkaline Phosphatase 63 (42-121) IU/L Total Protein 5.4 L (6.7-8.2) g/dL Albumin 2.7 L (3.2-5.5) g/dL Globulin 2.7 (2.1-4.2) g/dL Albumin/Globulin Ratio 1.0 (1.0-2.2) 11/29/17 11/29/17 11/29/17 Range/Units 20:29 16:26 11:24 WBC (4.8-10.8) x10^3/uL RBC (4.20-5.40) 10^6/uL Hgb (12.0-16.0) g/dL Hct (37.0-47.0) % MCV (81.0-99.0) fL MCH (27.0-31.0) pg MCHC (32.0-36.0) g/dL RDW (12.0-15.0) % Plt Count (130-450) 10^3/uL MPV (7.9-10.8) fL Neut # (Auto) (1.5-6.6) 10^3/uL Lymph # (Auto) (1.5-3.5) 10^3/uL [place] # (Auto) (0.0-1.0) 10^3/uL Eos # (Auto) (0.0-0.7) 10^3/uL Baso # (Auto) (0.0-0.1) 10^3/uL Absolute Nucleated RBC x10^3/uL Nucleated RBC % /100WBC Sodium (135-145) mmol/L Potassium (3.5-5.0) mmol/L Chloride (101-111) mmol/L Carbon Dioxide (21-32) mmol/L Anion Gap (6-13) BUN (6-20) mg/dL Creatinine (0.4-1.0) mg/dL Estimated GFR (MDRD) (>89) Glucose (70-100) mg/dL POC Whole Bld Glucose 178 H 187 H 178 H (70 - 100) mg/dL Calcium (8.5-10.3) mg/dL Phosphorus (2.5-4.6) mg/dL Magnesium (1.7-2.8) mg/dL Total Bilirubin (0.2-1.0) mg/dL AST (10-42) IU/L ALT (10-60) IU/L Alkaline Phosphatase (42-121) IU/L Total Protein (6.7-8.2) g/dL Albumin (3.2-5.5) g/dL Globulin (2.1-4.2) g/dL Albumin/Globulin Ratio (1.0-2.2) - Other Results/Comments Other Results/Comments: EXAM: Up in chair with mild pain. Dressing intact; will be changed by nurse prior to transfer. Moves toes well. sensation intact. Good cap filling. Mild pain with hip motion. Assessment/Plan - Problem List (1) Hip fracture Impression: Satis post op PLAN: can be transferred to SNF, if ok with medicine. Continue PT: walker ambuilate - WBAT on left. Follow up in 2 weeks for ann out and new XR. Qualifiers: Encounter type: initial encounter Fracture type: closed Laterality: left Qualified Code(s): S72.002A - Fracture of unspecified part of neck of left femur, initial encounter for closed fracture
[2017-11-30] MEDS: MORPHINE 2 MG/ML SYRINGE IVP PRN (10:53)
[2017-11-30] MEDS: NS W/20 MEQ KCL 1,000 ML IV SCH (11:26)
== END 2017-11-30 14:42 | DRG 482 ==
LOC: EDUNIT# → SUPCPDRO 03:42 → ED 03:42 → MS2 08:03
PROVIDERS: ADMIT Internal Medicine; ATTEND Internal Medicine
PROC: 0QS704Z Reposition Left Upper Femur with Internal Fixation Device, Open Approach (ICD-10-PCS; principal; 2017-11-28 11:30)
DX: S72.145A Nondisplaced intertrochanteric fracture of left femur, initial encounter for closed fracture (principal); W19.XXXA Unspecified fall, initial encounter; F03.90 Unspecified dementia, unspecified severity, without behavioral disturbance, psychotic disturbance, mood disturbance, and anxiety; I48.91 Unspecified atrial fibrillation; Z79.01 Long term (current) use of anticoagulants; E11.9 Type 2 diabetes mellitus without complications; I10 Essential (primary) hypertension; M85.80 Other specified disorders of bone density and structure, unspecified site; I25.10 Atherosclerotic heart disease of native coronary artery without angina pectoris; Z95.5 Presence of coronary angioplasty implant and graft
CPT/HCPCS: 36415; 51702; 70450; 71045; 80048; 80053; 81001; 81003; 83036; 83735; 84100; 85025; 85610; 85730; 86850; 86900; 86901; 86920; 87086; 93306; 96361; 96372; 96374; 99285

== ENCOUNTER 2017-12-02 15:25 | Outpatient (CLI) | payer MEDICARE, OTHER | END 2017-12-02 15:26 | disposition home or self-care (01) | LOC: LAB.R 15:25 | DX: E87.6 Hypokalemia (principal) | CPT/HCPCS: 84132 ==

== ENCOUNTER 2017-12-11 00:15 | Outpatient (CLI) | payer MEDICARE, OTHER | END 2017-12-11 00:16 | disposition critical access hospital (66) | LOC: EMS 00:15 | PROVIDERS: ATTEND Surgery | DX: M25.552 Pain in left hip (principal); W19.XXXA Unspecified fall, initial encounter; Y92.122 Bedroom in nursing home as the place of occurrence of the external cause | CPT/HCPCS: A0425; A0429 ==

== ENCOUNTER 2017-12-11 00:18 | Emergency (ER) | payer MEDICARE, OTHER ==
--- NOTE | 2017-12-11 02:03 | CT Report ---
Procedure Date: 12/11/2017 Accession Number: [id number] / [id number] Procedure: CT - Head W/O CPT Code: FULL RESULT: EXAM: CT HEAD EXAM DATE: 12/11/2017 01:47 AM. CLINICAL HISTORY: Fall on xeralto unknown if she hit head. COMPARISON: HEAD W/O 11/26/2017 6:52 AM. TECHNIQUE: Multiaxial CT images were obtained from the foramen magnum to the vertex. Reformats: Coronal. IV contrast: None. In accordance with CT protocol optimization, one or more of the following dose reduction techniques were utilized for this exam: automated exposure control, adjustment of mA and/or KV based on patient size, or use of iterative reconstructive technique. FINDINGS: Parenchyma: No intraparenchymal hemorrhage. No evidence of mass, midline shift, or CT findings of infarction. Agarwal-white differentiation is distinct. There is mild to moderate chronic microvascular changes in the deep white matter bilaterally. Extraaxial Spaces: There is age-related generalized cerebral volume loss. No subdural or epidural collections identified. Ventricles: No hydrocephalus. Sinuses and Orbits: Imaged paranasal sinuses, orbits, and mastoids show no significant abnormality. Bones: No evidence of fracture or calvarial defect. Other: None. IMPRESSION: 1. No acute intracranial abnormality. No skull fracture. 2. Age-related generalized cerebral volume loss and chronic microvascular change. 3. No significant change compared to 11/26/2017. RADIA
--- NOTE | 2017-12-11 02:05 | XRAY Report ---
Procedure Date: 12/11/2017 Accession Number: [id number] / [id number] Procedure: XR - Hip w/Pelvis 2-3V LT CPT Code: FULL RESULT: EXAM: LEFT HIP AND PELVIS RADIOGRAPHY EXAM DATE: 12/11/2017 01:49 AM. HISTORY: Fall injury. COMPARISONS: HIP W/PELVIS 2-3V LT 11/26/2017 L HIP NAILING 11/28/2017 11:08 AM. TECHNIQUE: 1 view of the pelvis and 2 view of the hip. FINDINGS: Bones: Osteopenia. Left hip fracture with gamma nail and distal interlocking screw. No new fracture identified. Joints: No dislocation seen. Very mild degenerative changes are seen in the hips. Degenerative changes in the lower lumbar spine. Soft Tissues: Vascular calcifications. Postoperative changes at the left hip with skin ann and soft tissue swelling. IMPRESSION: 1. Left hip fracture with gamma nail fixation. 2. No new fracture or dislocation identified. RADIA
--- NOTE | 2017-12-11 02:07 | XRAY Report ---
Procedure Date: 12/11/2017 Accession Number: [id number] / [id number] Procedure: XR - Femur 2V LT CPT Code: FULL RESULT: EXAM: LEFT FEMUR RADIOGRAPHY EXAM DATE: 12/11/2017 01:51 AM. CLINICAL HISTORY: Fall injury. COMPARISON: HIP W/PELVIS 2-3V LT 11/26/2017. TECHNIQUE: 2 views. FINDINGS: Bones: Left hip fracture with gamma nail and distal interlocking screw. Osteopenia. No new fracture identified. Joints: No dislocation seen. Minimal degenerative changes in the hip. Soft Tissues: Postoperative changes with soft tissue swelling and skin ann. Vascular calcifications. IMPRESSION: 1. Osteopenia with left hip fracture and gamma nail fixation. 2. No new fracture or dislocation identified. RADIA
--- NOTE | 2017-12-11 02:16 | ED Physician Documentation ---
PD HPI Fall - Stated complaint Stated Complaint: FALL/HIP INJURY - Chief complaint Chief Complaint: Ext Problem - History obtained from History obtained from: Patient, EMS - History of Present Illness Mechanism of injury: Slipped Fall distance: Standing position Where injury occurred: Home Timing - onset: Today Injury(ies) location: Head, Left Lower Extremity Quality of pain: Pain Associated symptoms: No: LOC Similar symptoms before: Work up / diagnostics, Treatment Recently seen: Surgery, Not recently seen - Additional information Additional information: Patient is an 87 year old female with a history of dementia who is presenting to the emergency department after falling. patient recently had a hip fracture that was repaired. Patient is on blood thinners but is unsure if she hit her head. Review of Systems Unable to obtain: Dementia PD PAST MEDICAL HISTORY - Past Medical History Past Medical History: Yes Cardiovascular: Hypertension, Coronary artery disease, Atrial fibrillation Respiratory: None Neuro: Dementia Endocrine/Autoimmune: Type 2 diabetes GI: None SLEEP SCIENTIST: None : None HEENT: None Psych: None Musculoskeletal: None Derm: None - Past Surgical History Past Surgical History: Yes General: Cholecystectomy, Appendectomy, Hiatal hernia repair Ortho: Knee replacement /SLEEP SCIENTIST: Endometrial ablation, Hysterectomy HEENT: Tonsil/Adenoidectomy - Present Medications Home Medications: Ambulatory Orders Medication Instructions Recorded Confirmed Sotalol [Betapace] 80 mg ORAL BID 04/06/13 11/26/17 Lisinopril 20 mg PO DAILY 01/19/15 11/26/17 Fluticasone [Flonase] 2 sprays KENDRA DAILY 11/26/17 11/26/17 Loperamide [Imodium] 2 mg PO DAILY PRN 11/26/17 11/26/17 Rivaroxaban [Xarelto] 20 mg PO QDBREAKFAST 11/26/17 11/26/17 diltiaZEM CD [Cardizem Cd] 180 mg PO DAILY 11/26/17 11/26/17 Acetaminophen [Tylenol] 650 mg PO Q4HR PRN tablet 11/30/17 Famotidine [Pepcid] 20 mg PO DAILY tablet 11/30/17 metFORMIN [Glucophage] 500 mg PO QDBREAKFAST #0 11/30/17 11/26/17 oxyCODONE [Roxicodone] 5 mg PO Q4HR PRN #24 tablet 11/30/17 - Allergies Allergies/Adverse Reactions: Allergies Allergy/AdvReac Type Severity Reaction Status Date / Time ibuprofen [From Motrin] AdvReac Intermediate Ringing in Verified 11/26/17 03:58 ears - Social History Does the pt smoke?: No Smoking Status: Never smoker Does the pt drink ETOH?: No Does the pt have substance abuse?: No - Immunizations Immunizations are current?: Yes Immunizations: TDAP current <10years - POLST Patient has POLST: No POLST Status: Full Code PD ED PE NORMAL - Vitals Vital signs reviewed: Yes - General General: No acute distress - HEENT HEENT: Atraumatic - Cardiac Cardiac: RRR - Respiratory Respiratory: No respiratory distress - Abdomen Abdomen: Soft - Derm Derm: Normal color PD ED PE EXPANDED - Extremities Extremities: Left hip (mild tenderness to palpation) - Neuro Neuro: Normal motor, Normal Sensation, Normal Speech, Other (patient is awake alert but with mild dementia and memory loss. Patient is able to move all extremities) - Psych Psych: Other Results - Vitals Vitals: Vital Signs - 24 hr 12/11/17 12/11/17 00:18 02:52 Temperature 36.3 C L Heart Rate 59 L 74 Respiratory 16 14 Rate Blood Pressure 139/66 H 117/81 H O2 Saturation 98 97 Oxygen O2 Source Room air - Rads (name of study) ct head Radiology: Final report received (no acute changes) left hip Radiology: Final report received (prostetic in place, no acute fracture or dislocation) PD MEDICAL DECISION MAKING - ED course Complexity details: reviewed old records, reviewed results, re-evaluated patient , considered differential, d/w patient ED course: Patient was seen and examined at bedside. patient was in no acute distress. Patient was sent for imaging. Patient is poor historian and is on xeralto so CT head was added. When patient returned from imaging the results were reviewed. there were no acute abnormalities and patient was stable for discharge home back to the memory care unit. - Sepsis Event Vital Signs: Vital Signs - 24 hr 12/11/17 12/11/17 00:18 02:52 Temperature 36.3 C L Heart Rate 59 L 74 Respiratory 16 14 Rate Blood Pressure 139/66 H 117/81 H O2 Saturation 98 97 Oxygen O2 Source Room air Departure - Departure Disposition: 01 Home, Self Care Clinical Impression: Fall Condition: Good Instructions: Falls Risks Prevent Follow-Up: Santana Scherer MD [Primary Care Provider] - Comments: there are no acute abnormalities appreciated today after your fall. You should follow up with your primary doctor and orthopedic (bone doctor) for further evaluation and care. Discharge Date/Time: 12/11/17 03:21
[2017-12-11 02:53] VITALS: BP 117/81
== END 2017-12-11 03:21 | disposition home or self-care (01) ==
LOC: EDUNIT# → ED 00:18
DX: M25.552 Pain in left hip (principal); Z91.81 History of falling; I10 Essential (primary) hypertension; I25.10 Atherosclerotic heart disease of native coronary artery without angina pectoris; I48.91 Unspecified atrial fibrillation; E11.9 Type 2 diabetes mellitus without complications; F03.90 Unspecified dementia, unspecified severity, without behavioral disturbance, psychotic disturbance, mood disturbance, and anxiety; Z79.01 Long term (current) use of anticoagulants; Z79.84 Long term (current) use of oral hypoglycemic drugs; Z96.659 Presence of unspecified artificial knee joint
CPT/HCPCS: 70450; 99283

== ENCOUNTER 2017-12-11 03:18 | Outpatient (CLI) | payer MEDICARE, OTHER | END 2017-12-11 03:19 | LOC: EMS 03:18 | PROVIDERS: ATTEND Surgery | DX: F03.90 Unspecified dementia, unspecified severity, without behavioral disturbance, psychotic disturbance, mood disturbance, and anxiety (principal); M25.552 Pain in left hip; W19.XXXA Unspecified fall, initial encounter; Y92.122 Bedroom in nursing home as the place of occurrence of the external cause | CPT/HCPCS: A0425; A0428; A0429 ==

== ENCOUNTER 2017-12-23 22:30 | Outpatient (CLI) | payer MEDICARE, OTHER ==
[2017-12-24 01:33] LABS: BILIRUBIN,URINE NEGATIVE (NEGATIVE); GLUCOSE, URINE (UA) NEGATIVE (NEGATIVE); KETONES,URINE (UA) NEGATIVE (NEGATIVE); LEUKOCYTE ESTERASE, URINE MODERATE (NEGATIVE); NITRITE,URINE POSITIVE (NEGATIVE); OCCULT BLOOD,URINE NEGATIVE (NEGATIVE); PROTEIN,URINE NEGATIVE (NEGATIVE); UROBILINOGEN,URINE 0.2 (NORMAL) E.U./dL (NORMAL)
[2017-12-24 01:45] LABS: CLARITY,URINE HAZY (CLEAR)
[2017-12-24 01:46] LABS: BACTERIA,URINE Many /HPF (None Seen); RBC,URINE 0-5 /HPF (0-5); SQUAMOUS EPITHELIAL CELL,UR RARE Squamous (<= Few)
== END 2017-12-23 22:31 ==
LOC: LAB.R 22:30
DX: N39.0 Urinary tract infection, site not specified (principal)
CPT/HCPCS: 81001; 81003; 87086

== ENCOUNTER 2017-12-24 15:22 | Outpatient (CLI) | payer MEDICARE, OTHER ==
[2017-12-24 16:31] LABS: BASOPHILS % (AUTO) 1.1 %; EOSINOPHILS # (AUTO) 0.2 10^3/uL (0.0-0.7); HGB - HEMOGLOBIN 11.3 g/dL (12.0-16.0); MEAN CORPUSCULAR HEMOGLOBIN 32.2 pg (27.0-31.0); MEAN CORPUSCULAR HGB CONC 34.3 g/dL (32.0-36.0); MEAN CORPUSCULAR VOLUME 93.8 fL (81.0-99.0); MONOCYTES # (AUTO) 0.7 10^3/uL (0.0-1.0); MONOCYTES % (AUTO) 14.9 %; NEUTROPHILS # (AUTO) 2.5 10^3/uL (1.5-6.6); PLT - PLATELET COUNT 258 10^3/uL (130-450); RED BLOOD COUNT 3.51 10^6/uL (4.20-5.40); RED CELL DISTRIBUTION WIDTH 16.4 % (12.0-15.0); WHITE BLOOD COUNT 4.5 x10^3/uL (4.8-10.8)
[2017-12-24 16:39] LABS: CALCIUM 8.5 mg/dL (8.5-10.3); CREATININE 0.8 mg/dL (0.4-1.0)
== END 2017-12-24 15:23 | disposition home or self-care (01) ==
LOC: LAB.R 15:22
DX: E11.9 Type 2 diabetes mellitus without complications (principal); D62 Acute posthemorrhagic anemia
CPT/HCPCS: 80048; 82728; 85025

== ENCOUNTER 2018-01-01 16:07 | Outpatient (CLI) | payer MEDICARE, OTHER | END 2018-01-01 16:08 | disposition critical access hospital (66) | LOC: EMS 16:07 | PROVIDERS: ATTEND Surgery | DX: M25.552 Pain in left hip (principal); W18.30XA Fall on same level, unspecified, initial encounter; Y92.122 Bedroom in nursing home as the place of occurrence of the external cause ==

== ENCOUNTER 2018-01-01 16:13 | Emergency (ER) | payer MEDICARE, OTHER ==
[2018-01-01] MEDS ORDERED: MORPHINE 2 MG/ML CARPUJECT IVP STA (16:19)
--- NOTE | 2018-01-01 16:21 | ED Physician Documentation ---
PD HPI LOWER EXT INJURY - Stated complaint Stated Complaint: FALL - History obtained from History obtained from: Patient, EMS - History of Present Illness PD HPI LOW EXT INJURY LOCATION: Left (This is a demented 87-year-old woman who had a left intertrochanteric hip fracture about a month ago. She had a ground- level fall and was found sitting on the floor today complaining of left leg pain. She does not remember the injury and because of her dementia is not a very helpful historian.) Review of Systems Unable to obtain: Dementia PD PAST MEDICAL HISTORY - Past Medical History Cardiovascular: Hypertension, Coronary artery disease, Atrial fibrillation Respiratory: None Neuro: Dementia Endocrine/Autoimmune: Type 2 diabetes GI: None CREDIT SUPPORT COUNSELOR: None : None HEENT: None Psych: None Musculoskeletal: None Derm: None - Past Surgical History Past Surgical History: Yes General: Cholecystectomy, Appendectomy, Hiatal hernia repair Ortho: Knee replacement /CREDIT SUPPORT COUNSELOR: Endometrial ablation, Hysterectomy HEENT: Tonsil/Adenoidectomy - Present Medications Home Medications: Ambulatory Orders Medication Instructions Recorded Confirmed Sotalol [Betapace] 80 mg ORAL BID 04/06/13 11/26/17 Lisinopril 20 mg PO DAILY 01/19/15 11/26/17 Fluticasone [Flonase] 2 sprays KENDRA DAILY 11/26/17 11/26/17 Loperamide [Imodium] 2 mg PO DAILY PRN 11/26/17 11/26/17 Rivaroxaban [Xarelto] 20 mg PO QDBREAKFAST 11/26/17 11/26/17 diltiaZEM CD [Cardizem Cd] 180 mg PO DAILY 11/26/17 11/26/17 Acetaminophen [Tylenol] 650 mg PO Q4HR PRN tablet 11/30/17 Famotidine [Pepcid] 20 mg PO DAILY tablet 11/30/17 metFORMIN [Glucophage] 500 mg PO QDBREAKFAST #0 11/30/17 11/26/17 oxyCODONE [Roxicodone] 5 mg PO Q4HR PRN #24 tablet 11/30/17 - Allergies Allergies/Adverse Reactions: Allergies Allergy/AdvReac Type Severity Reaction Status Date / Time ibuprofen [From Motrin] AdvReac Intermediate Ringing in Verified 01/01/18 16:35 ears - Social History Does the pt smoke?: No Smoking Status: Never smoker Does the pt drink ETOH?: No Does the pt have substance abuse?: No - Immunizations Immunizations are current?: Yes Immunizations: TDAP current <10years - POLST Patient has POLST: No POLST Status: Full Code PD ED PE NORMAL - Vitals Vital signs reviewed: Yes - General General: Other (She is alert, oriented only to person. Does not know why she is here. She is clutching the left hip.) - HEENT HEENT: PERRL, EOMI - Neck Neck: Supple, no meningeal sign, No bony TTP - Cardiac Cardiac: No: RRR (Irregularly irregular) - Respiratory Respiratory: No respiratory distress, Clear bilaterally - Abdomen Abdomen: Normal bowel sounds, Soft, Non tender - Back Back: No CVA TTP - Derm Derm: Normal color, Warm and dry - Extremities Extremities: Other (Left leg is slightly shortened, not rotated. Otherwise neutral. There is a skin tear on the left knee. She has a lot of pain with internal or external rotation. No tenderness below the knee. Normal pedal pulses.) - Neuro Neuro: No: Alert and oriented X 3 Eye Opening: Spontaneous Motor: Obeys Commands Verbal: Confused GCS Score: 14 - Psych Psych: Normal mood, Normal affect Results - Vitals Vitals: Vital Signs - 24 hr 01/01/18 01/01/18 16:31 18:13 Temperature 37 C 36.3 C L Heart Rate 99 104 H Respiratory 20 16 Rate Blood Pressure 171/121 H 168/97 H O2 Saturation 100 97 Oxygen O2 Source Room air - Labs Labs: Laboratory Tests 01/01/18 01/01/18 01/01/18 16:30 16:30 16:30 WBC 5.6 RBC 4.41 Hgb 14.0 Hct 41.5 MCV 94.0 MCH 31.7 H MCHC 33.7 RDW 15.5 H Plt Count 250 MPV 7.7 L Neut # (Auto) 3.6 Lymph # (Auto) 1.3 L [place] # (Auto) 0.6 Eos # (Auto) 0.1 Baso # (Auto) 0.0 Absolute Nucleated RBC 0.00 Nucleated RBC % 0.0 PT 13.8 H INR 1.2 Sodium 137 Potassium 3.6 Chloride 100 L Carbon Dioxide 23 Anion Gap 14.0 H BUN 17 Creatinine 0.5 Estimated GFR (MDRD) 117 Glucose 143 H Calcium 9.0 Total Bilirubin 1.1 H AST 26 ALT 18 Alkaline Phosphatase 109 Total Protein 6.9 Albumin 4.1 Globulin 2.8 Albumin/Globulin Ratio 1.5 Lipase 79 H PD MEDICAL DECISION MAKING - ED course ED course: 87-year-old woman on Xarelto for A. fib presents after new trauma to the Left leg after having a short InterTAN nailing a month ago. She is found to have a spiral fracture at the end of her hardware. I spoke with Dr. Fleming, the on-call orthopedist here who felt she would probably just need the short nail removed and a longer nail place. Unfortunately this hospital is full and unable to admit her here. Her POA/guardian was updated by phone. We started calling around for other facilities with available capacity. Case discussed with Davion Bernal, on-call orthopedic at [facility] as they had beds. He reviewed the images and felt that she was not appropriate for their facility as the fracture is not healed yet and would require specialized instrumentation recommended [facility]. She was accepted to [facility] by Dr. Kathleen Al at 7 PM. Cobras were completed. I updated her POA Mr. Theodore by phone and he agreed to the transfer verbally. - Sepsis Event Vital Signs: Vital Signs - 24 hr 01/01/18 01/01/18 16:31 18:13 Temperature 37 C 36.3 C L Heart Rate 99 104 H Respiratory 20 16 Rate Blood Pressure 171/121 H 168/97 H O2 Saturation 100 97 Oxygen O2 Source Room air Departure - Departure Disposition: 02 Transfer Acute Care Hosp Clinical Impression: Anticoagulant long-term use Fall on same level from slipping, tripping or stumbling Qualifiers: Encounter type: initial encounter Qualified Code(s): W01.0XXA - Fall on same level from slipping, tripping and stumbling without subsequent striking against object, initial encounter Intertrochanteric fracture of left hip Qualifiers: Encounter type: sequela Fracture type: closed Fracture alignment: displaced Qualified Code(s): S72.142S - Displaced intertrochanteric fracture of left femur, sequela Femur fracture, left Qualifiers: Encounter type: initial encounter Femur location: shaft Fracture type: closed Fracture morphology: spiral Fracture alignment: displaced Qualified Code(s): S72.342A - Displaced spiral fracture of shaft of left femur, initial encounter for closed fracture Condition: Stable
[2018-01-01 16:37] LABS: BASOPHILS % (AUTO) 0.8 %; EOSINOPHILS # (AUTO) 0.1 10^3/uL (0.0-0.7); EOSINOPHILS % (AUTO) 1.9 %; LYMPHOCYTES # (AUTO) 1.3 10^3/uL (1.5-3.5); LYMPHOCYTES % (AUTO) 22.6 %; MEAN CORPUSCULAR HEMOGLOBIN 31.7 pg (27.0-31.0); MEAN CORPUSCULAR HGB CONC 33.7 g/dL (32.0-36.0); MEAN PLATELET VOLUME 7.7 fL (7.9-10.8); MONOCYTES # (AUTO) 0.6 10^3/uL (0.0-1.0); NEUTROPHILS # (AUTO) 3.6 10^3/uL (1.5-6.6); NEUTROPHILS % (AUTO) 63.7 %; PLT - PLATELET COUNT 250 10^3/uL (130-450); RED BLOOD COUNT 4.41 10^6/uL (4.20-5.40); RED CELL DISTRIBUTION WIDTH 15.5 % (12.0-15.0); WHITE BLOOD COUNT 5.6 x10^3/uL (4.8-10.8)
[2018-01-01] MEDS ORDERED: HYDROcod/ACETAM 5/325 MG TABLET PO STA (16:41)
[2018-01-01 16:47] LABS: INR 1.2 (0.8-1.2); PT - PROTHROMBIN TIME 13.8 secs (9.9-12.6)
[2018-01-01 16:49] LABS: ALBUMIN 4.1 g/dL (3.2-5.5); ALBUMIN/GLOBULIN RATIO 1.5 (1.0-2.2); BILIRUBIN,TOTAL 1.1 mg/dL (0.2-1.0); CREATININE 0.5 mg/dL (0.4-1.0); TOTAL PROTEIN 6.9 g/dL (6.7-8.2)
--- NOTE | 2018-01-01 18:08 | XRAY Report ---
Reason: leg inj Procedure Date: 01/01/2018 Accession Number: [id number] / [id number] Procedure: XR - Knee 3 View LT CPT Code: FULL RESULT: EXAM: LEFT KNEE RADIOGRAPHY EXAM DATE: 01/01/2018 05:00 PM. CLINICAL HISTORY: Leg inj. COMPARISON: L HIP NAILING 11/28/2017 11:08 AM FEMUR 2V LT 01/01/2018. TECHNIQUE: 3 views. FINDINGS: Bones: Examination limited by rotation. There is absence of a true frontal and true lateral. Joints: The patella appears displaced, uncertain if this represents patellar subluxation or dislocation or artifact related to suboptimal positioning. Soft Tissues: Otherwise unremarkable. IMPRESSION: 1. Limited examination of the knee secondary to rotation. Dislocation of the patella cannot be excluded. RADIA
--- NOTE | 2018-01-01 18:10 | XRAY Report ---
Reason: leg inj Procedure Date: 01/01/2018 Accession Number: [id number] / [id number] Procedure: XR - Femur 2V LT CPT Code: FULL RESULT: EXAM: LEFT FEMUR RADIOGRAPHY EXAM DATE: 01/01/2018 05:00 PM. CLINICAL HISTORY: Leg inj. COMPARISON: HIP W/PELVIS 2-3V LT 12/11/2017. TECHNIQUE: 2 views. FINDINGS: Bones: There is a fracture of the left femoral diaphysis. The fracture is oblique and there is angulation. The fracture is located near the level of an intramedullary sukhdeep and interlocking screw. The surgical hardware appears intact. Joints: No dislocation at the hip. Soft Tissues: Unremarkable. IMPRESSION: 1. Displaced oblique fracture left femoral diaphysis just below the surgical hardware. RADIA
--- NOTE | 2018-01-01 18:13 | XRAY Report ---
Reason: leg inj Procedure Date: 01/01/2018 Accession Number: [id number] / [id number] Procedure: XR - Hip w/Pelvis 2-3V LT CPT Code: FULL RESULT: EXAM: LEFT HIP AND PELVIS RADIOGRAPHY EXAM DATE: 01/01/2018 05:00 PM. HISTORY: Leg inj. COMPARISONS: HIP W/PELVIS 2-3V LT 12/11/2017. TECHNIQUE: 1 view of the pelvis and 1 view of the hip. FINDINGS: Bones: Previous left femur fracture with ORIF with dynamic compression screw. The surgical hardware appears intact. There is an oblique fracture of the femoral diaphysis located at the level of the lower intramedullary sukhdeep. Joints: No dislocation at the hip. Soft Tissues: There are vascular calcifications. IMPRESSION: Left femoral diaphysis fracture. RADIA
[2018-01-01 20:25] VITALS: BP 134/112
== END 2018-01-01 20:25 | disposition short-term general hospital (02) ==
LOC: EDUNIT# → ED 16:13
DX: S72.142S Displaced intertrochanteric fracture of left femur, sequela (principal); S72.342A Displaced spiral fracture of shaft of left femur, initial encounter for closed fracture; W18.30XA Fall on same level, unspecified, initial encounter; F03.90 Unspecified dementia, unspecified severity, without behavioral disturbance, psychotic disturbance, mood disturbance, and anxiety; I48.91 Unspecified atrial fibrillation; Z79.01 Long term (current) use of anticoagulants; I10 Essential (primary) hypertension; I25.10 Atherosclerotic heart disease of native coronary artery without angina pectoris; E11.9 Type 2 diabetes mellitus without complications; Z79.84 Long term (current) use of oral hypoglycemic drugs; Z96.619 Presence of unspecified artificial shoulder joint
CPT/HCPCS: 36415; 80053; 83690; 85025; 85610; 99283; 99284

== ENCOUNTER 2018-01-01 20:17 | Outpatient (CLI) | payer MEDICARE, OTHER | END 2018-01-01 20:18 | disposition short-term general hospital (02) | LOC: EMS 20:17 | PROVIDERS: ATTEND Surgery | DX: S72.92XA Unspecified fracture of left femur, initial encounter for closed fracture (principal); M25.552 Pain in left hip; W18.30XA Fall on same level, unspecified, initial encounter; Y92.122 Bedroom in nursing home as the place of occurrence of the external cause | CPT/HCPCS: A0425; A0428; A0429 ==